=== PATIENT | female | born 1935 | race Caucasian/White ===

== ENCOUNTER → 2016-04-28 | Outpatient (CLI) | payer MEDICARE ==
[2016-04-28 11:31] LABS: ALBUMIN/GLOBULIN RATIO 0.94 (1.00-1.93); ALKALINE PHOSPHATASE 86 U/L (45-117); ALT/SGPT 15 U/L (12-78); ANION GAP 11 MEQ/L (8-16); AST/SGOT 13 U/L (15-37); BILIRUBIN,TOTAL 0.6 MG/DL (0.2-1.0); BLOOD UREA NITROGEN 15 MG/DL (7-18); CARBON DIOXIDE LEVEL 27 MEQ/L (21-32); CHLORIDE LEVEL 104 MEQ/L (98-107); CHOLESTEROL LEVEL 181 MG/DL (<200); CREATININE FOR GFR 0.91 MG/DL (0.55-1.02); GLOMERULAR FILTRATION RATE > 60.0 (>32); GLUCOSE, FASTING 117 MG/DL (83-110); POTASSIUM SERUM 3.9 MEQ/L (3.5-5.1); SODIUM LEVEL 142 MEQ/L (136-145); TOTAL PROTEIN 6.2 GM/DL (6.4-8.2); TRIGLYCERIDES LEVEL 200 MG/DL (<150)
== END ==
LOC: M LAB 09:41
PROVIDERS: ATTEND Family Medicine
DX: E11.9 Type 2 diabetes mellitus without complications (principal); E78.00 Pure hypercholesterolemia, unspecified; E03.9 Hypothyroidism, unspecified

== ENCOUNTER → 2016-09-07 | Outpatient (CLI) | payer MEDICARE | LOC: M LAB 09:33 | PROVIDERS: ATTEND Family Medicine | DX: N18.3 Chronic kidney disease, stage 3 (moderate) (principal); Z79.899 Other long term (current) drug therapy ==

== ENCOUNTER → 2016-09-15 | Outpatient (REF) | payer MEDICARE ==
[2016-09-15 11:10] LABS: ALBUMIN 2.9 GM/DL (3.2-5.2); ALBUMIN/GLOBULIN RATIO 0.88 (1.00-1.93); BILIRUBIN,TOTAL 0.4 MG/DL (0.2-1.0); CALCIUM LEVEL 9.1 MG/DL (8.8-10.2); CREATININE FOR GFR 0.99 MG/DL (0.55-1.02); FREE T4 1.48 NG/DL (0.76-1.46); GLOMERULAR FILTRATION RATE 57.3 (>32); POTASSIUM SERUM 4.3 MEQ/L (3.5-5.1); TOTAL PROTEIN 6.2 GM/DL (6.4-8.2)
== END ==
LOC: M LAB REF 10:13
PROVIDERS: ATTEND Family Medicine
DX: N18.3 Chronic kidney disease, stage 3 (moderate) (principal); E03.9 Hypothyroidism, unspecified; E11.9 Type 2 diabetes mellitus without complications

== ENCOUNTER → 2017-03-26 | Outpatient (CLI) | payer MEDICARE ==
[2017-03-26 13:56] LABS: ESTIMATED AVERAGE GLUCOSE 140 MG/DL (60-110); HEMOGLOBIN A1c 6.5 %
[2017-03-26 14:04] LABS: ALBUMIN 3.3 GM/DL (3.2-5.2); ALKALINE PHOSPHATASE 95 U/L (45-117); ALT/SGPT 14 U/L (12-78); ANION GAP 8 MEQ/L (8-16); AST/SGOT 14 U/L (7-37); BILIRUBIN,TOTAL 0.5 MG/DL (0.2-1.0); BLOOD UREA NITROGEN 24 MG/DL (7-18); CALCIUM LEVEL 8.7 MG/DL (8.8-10.2); CARBON DIOXIDE LEVEL 28 MEQ/L (21-32); CHLORIDE LEVEL 103 MEQ/L (98-107); CHOLESTEROL LEVEL 245 MG/DL (<200); CHOLESTEROL RISK RATIO 5.697 (<5); CREATININE FOR GFR 1.04 MG/DL (0.55-1.30); GLUCOSE, FASTING 125 MG/DL (70-100); HDL CHOLESTEROL 43 MG/DL (>40); LDL CHOLESTEROL 162.8 MG/DL (<100); NON-HDL-C 202 MG/DL; POTASSIUM SERUM 4.1 MEQ/L (3.5-5.1); SODIUM LEVEL 139 MEQ/L (136-145); TOTAL PROTEIN 6.6 GM/DL (6.4-8.2); TRIGLYCERIDES LEVEL 196 MG/DL (<150)
== END ==
LOC: M LAB 12:07
DX: I12.9 Hypertensive chronic kidney disease with stage 1 through stage 4 chronic kidney disease, or unspecified chronic kidney disease (principal); E78.00 Pure hypercholesterolemia, unspecified; E11.9 Type 2 diabetes mellitus without complications
CPT/HCPCS: 80053

== ENCOUNTER 2017-04-25 09:08 | Emergency (ER) | payer MEDICARE ==
[2017-04-25 10:09] LABS: BASO # 0.1 10^3/uL (0.0-0.2); EOS % 0.5 % (0.0-3.0); HEMATOCRIT 41.8 % (36.0-47.0); HEMOGLOBIN 13.8 g/dl (12.0-16.0); IMMATURE GRANULOCYTE % 0.5 % (0-3.0); LYMPH % 15.6 % (24.0-44.0); MEAN CORPUSCULAR HEMOGLOBIN 29.2 pg (27.0-33.0); MEAN CORPUSCULAR VOLUME 88.6 fl (80.0-96.0); MONO # 0.9 10^3/uL (0.0-0.8); MONO % 13.9 % (0.0-5.0); NEUTROPHILS # 4.2 10^3/uL (1.8-7.7); NEUTROPHILS % 68.5 % (36.0-66.0); PLATELET COUNT, AUTOMATED 255 10^3/uL (150-450); RED BLOOD COUNT 4.72 10^6/uL (4.00-5.40); RED CELL DISTRIBUTION WIDTH 14.7 % (11.5-14.5); WHITE BLOOD COUNT 6.1 10^3/uL (4.0-10.0)
[2017-04-25 10:22] LABS: INR 0.99; PROTHROMBIN TIME 13.2 SECONDS (12.4-14.5)
[2017-04-25] MEDS: NS 500 ML IV ×2 (10:22→11:32)
[2017-04-25 10:23] LABS: ANION GAP 10 MEQ/L (8-16); BLOOD UREA NITROGEN 18 MG/DL (7-18); CALCIUM LEVEL 8.4 MG/DL (8.8-10.2); CARBON DIOXIDE LEVEL 26 MEQ/L (21-32); CHLORIDE LEVEL 102 MEQ/L (98-107); CREATININE FOR GFR 1.19 MG/DL (0.55-1.30); GLOMERULAR FILTRATION RATE 46.2 (>32); GLUCOSE, FASTING 160 MG/DL (70-100); POTASSIUM SERUM 3.7 MEQ/L (3.5-5.1); SODIUM LEVEL 138 MEQ/L (136-145)
[2017-04-25 10:29] LABS: THYROID STIMULATING HORMONE 0.676 uIU/ML (0.358-3.740)
[2017-04-25] MEDS: BENZONATATE 100 MG CAP PO (11:40)
== END 2017-04-25 12:48 | disposition home or self-care (01) ==
LOC: M ED 09:08
DX: E86.0 Dehydration (principal); R42 Dizziness and giddiness; R05 Cough; R09.81 Nasal congestion; E11.9 Type 2 diabetes mellitus without complications; E78.5 Hyperlipidemia, unspecified; E07.9 Disorder of thyroid, unspecified; Z88.0 Allergy status to penicillin; Z79.899 Other long term (current) drug therapy; Z79.4 Long term (current) use of insulin; Z79.82 Long term (current) use of aspirin
CPT/HCPCS: 71046

== ENCOUNTER → 2017-08-24 | Outpatient (CLI) | payer MEDICARE ==
[2017-08-24 11:41] LABS: ALBUMIN/GLOBULIN RATIO 0.88 (1.00-1.93); ALKALINE PHOSPHATASE 81 U/L (45-117); ALT/SGPT 15 U/L (12-78); ANION GAP 9 MEQ/L (8-16); AST/SGOT 15 U/L (7-37); BILIRUBIN,TOTAL 0.5 MG/DL (0.2-1.0); BLOOD UREA NITROGEN 18 MG/DL (7-18); CALCIUM LEVEL 8.5 MG/DL (8.8-10.2); CARBON DIOXIDE LEVEL 27 MEQ/L (21-32); CHLORIDE LEVEL 105 MEQ/L (98-107); CHOLESTEROL LEVEL 275 MG/DL (<200); CREATININE FOR GFR 0.99 MG/DL (0.55-1.30); GLOMERULAR FILTRATION RATE 57.2 (>32); GLUCOSE, FASTING 80 MG/DL (70-100); HDL CHOLESTEROL 44 MG/DL (>40); LDL CHOLESTEROL 196.8 MG/DL (<100); NON-HDL-C 231 MG/DL; POTASSIUM SERUM 4.4 MEQ/L (3.5-5.1); SODIUM LEVEL 141 MEQ/L (136-145); TOTAL PROTEIN 6.4 GM/DL (6.4-8.2); TRIGLYCERIDES LEVEL 171 MG/DL (<150)
[2017-08-24 12:16] LABS: ESTIMATED AVERAGE GLUCOSE 151 MG/DL (60-110); HEMOGLOBIN A1c 6.9 %
== END ==
LOC: M LAB 10:06
DX: N18.3 Chronic kidney disease, stage 3 (moderate) (principal); Z79.899 Other long term (current) drug therapy
CPT/HCPCS: 84443

== ENCOUNTER → 2017-10-08 | Outpatient (CLI) | payer MEDICARE | LOC: M ADAMS 11:11 | DX: M25.532 Pain in left wrist (principal) | CPT/HCPCS: 73110 ==

== ENCOUNTER → 2018-03-29 | Outpatient (CLI) | payer MEDICARE ==
[~2018-03-29] MED LIST: ASPI81TA85 PO; ATOR40TA75 PO; ENAL2.5T PO; GLUC15009 PO; GLYB1TAB67; HUMA75IN2; HYDR25TAB PO; KLOR1CAP2 PO; LEVO112T2 PO; PIOG1TAB55 PO
[2018-03-29 13:59] LABS: BILIRUBIN,TOTAL 0.5 MG/DL (0.2-1.0); CALCIUM LEVEL 8.7 MG/DL (8.8-10.2); CREATININE FOR GFR 1.11 MG/DL (0.55-1.30); POTASSIUM SERUM 3.9 MEQ/L (3.5-5.1); THYROID STIMULATING HORMONE 0.525 uIU/ML (0.358-3.740); TOTAL PROTEIN 6.2 GM/DL (6.4-8.2)
[2018-03-29 14:25] LABS: HEMOGLOBIN A1c 6.7 %
[2018-03-29 17:13] LABS: MALB URINE SIEMENS 51.3 MG/L; MAU/CREAT RATIO 23.7 MCG/MG (0.0-30.0)
== END ==
LOC: M LAB 12:09
PROVIDERS: ATTEND Family Medicine
DX: N18.3 Chronic kidney disease, stage 3 (moderate) (principal); E78.00 Pure hypercholesterolemia, unspecified; E03.9 Hypothyroidism, unspecified; E11.65 Type 2 diabetes mellitus with hyperglycemia

== ENCOUNTER 2018-08-19 08:32 | Inpatient (IN) | payer MEDICARE ==
[~2018-08-19] VITALS: Ht 157.5 cm; Wt 120.5 kg
[~2018-08-19 08:32] MED LIST changes: -GLYB1TAB67; +GLYB5TAB12 PO; -HUMA75IN2; +HUMA75IN2 PO
[2018-08-19] MEDS ORDERED: ACETAMINOPHEN 325 MG TAB PO ONE (09:15)
[2018-08-19] MEDS ORDERED: TYLENOL PM PO (09:19)
[2018-08-19] MEDS ORDERED: APAP325T4 PO (09:19)
--- NOTE | 2018-08-19 10:08 | REP ---
Duplex extremity venous ultrasound: Right lower extremity. History: Right lower leg pain. Rule out DVT. Findings: The deep veins are anechoic and fully compressible from the groin to the popliteal fossa in the right lower extremity. Color flow imaging is homogeneous. Spectral Doppler interrogation demonstrates intact respiratory variation in flow and normal manual augmentation of flow. There is no evidence of deep vein thrombosis. Impression: Negative right lower extremity duplex venous ultrasound. No evidence of deep vein thrombosis. Electronically Signed by Luan Earl MD 08/19/2018 10:00 A
[2018-08-19 10:48] LABS: HEMATOCRIT 38.8 % (36.0-47.0); HEMOGLOBIN 12.8 g/dl (12.0-15.5); MEAN CORPUSCULAR HEMOGLOBIN 30.1 pg (27.0-33.0); MEAN CORPUSCULAR VOLUME 91.3 fl (80.0-96.0); PLATELET COUNT, AUTOMATED 304 10^3/uL (150-450); RED BLOOD COUNT 4.25 10^6/uL (4.00-5.40); WHITE BLOOD COUNT 9.6 10^3/uL (4.0-10.0)
[2018-08-19 10:58] LABS: C REACTIVE PROTEIN QUANTITATIV 0.4 MG/DL (0.00-0.30); CALCIUM LEVEL 8.7 MG/DL (8.8-10.2); CREATININE FOR GFR 1.06 MG/DL (0.55-1.30); GLOMERULAR FILTRATION RATE 52.7 (>32); POTASSIUM SERUM 3.9 MEQ/L (3.5-5.1)
[2018-08-19 11:12] LABS: ERYTHROCYTE SEDIMENTATION RATE 46 mm/hr (0-30)
[2018-08-19 11:13] VITALS: BP 146/77
[2018-08-19] MEDS ORDERED: IBUP-1022 PO ×2 (11:22→12:51)
[2018-08-19] MEDS ORDERED: IBUPROFEN 800 MG TAB PO ONE (11:30)
[2018-08-19] MEDS ORDERED: HUMA75IN2 SC (12:51)
[2018-08-19] MEDS ORDERED: GNP650TA8 PO (12:51)
[2018-08-19] MEDS ORDERED: ATOR1TAB21 PO (12:51)
[2018-08-19] MEDS ORDERED: ACET25TA12 PO (12:53)
[2018-08-19] MEDS ORDERED: POTA10CA32 PO (12:53)
--- NOTE | 2018-08-19 13:04 | REP ---
Right knee series: Five views. History: Right posterior knee pain. Findings: There is vascular calcification. There is mild patellofemoral spurring. Nonarticular spurring is seen on the superior pole the patella as well. No fracture or subluxation is seen. Impression: No acute bony abnormality. Mild patellofemoral osteoarthritic and nonarticular spurring. Electronically Signed by Luan Earl MD 08/19/2018 10:01 A
--- NOTE | 2018-08-19 13:25 | REP ---
CT of the right knee without IV contrast: Comparison is the plain film study performed earlier today. There is no fracture or dislocation. There is a small joint effusion. There is patellofemoral osteoarthritis, particularly in the lateral facet. 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 There is a small subcortical bone island posteriorly in the medial femoral condyle. There are no calcifications. There is a large volume subcutaneous adipose tissue. Impression: There is no fracture or dislocation. Osteoarthritis. Small joint effusion. Electronically Signed by Maco Santiago MD 08/19/2018 01:16 P
[2018-08-19] MEDS: ASPIRIN 81 MG ENTERIC TAB PO SCH (13:40)
[2018-08-19] MEDS: hydroCHLOROthiazide 25 MG TAB PO SCH (13:41)
[2018-08-19] MEDS: POTASSIUM CHLORIDE 10 MEQ SR TABLET PO SCH (13:41)
[2018-08-19] MEDS ORDERED: GLUCAGON FOR INJ 1 MG VIAL (J1610) SC PRN (15:30)
[2018-08-19] MEDS ORDERED: DEXTROSE 50% 50 ML SYRINGE IV PRN (15:30)
[2018-08-19] MEDS ORDERED: GLUCOSE 4 GM CHEW TABLET PO PRN (15:30)
--- NOTE | 2018-08-19 16:12 | HPE ---
DATE OF ADMISSION: 08/19/2018 PRIMARY CARE PROVIDER: Dr. Aly York PRINCIPAL DIAGNOSIS: Right knee pain and inability to ambulate. HISTORY: Radha Vinson, 82-year-old, patient of Dr. York'christie who came to the emergency room because she could not bear weight on her right leg. She says her right knee hurts behind the knee and she is unable to walk on it. Physical therapy saw her in the emergency room and they did not feel she was stable for discharge. Radiographs include plain films, and then following this a CT of the right knee showed no fracture. She has arthritis and small joint effusion. PAST MEDICAL HISTORY: Shows hyperlipidemia, hypertensive heart disease, type 2 diabetes, hypothyroidism, history of arthritis. SURGICAL HISTORY: Cataract extractions, hysterectomy, (C) sections. MEDICATIONS: - aspirin 81 mg daily - Tylenol - atorvastatin 20 mg twice weekly - Vasotec 2.5 mg daily - glucosamine 1500 mg daily - glyburide/metformin 5/500 2 tablets daily - hydrochlorothiazide 25 mg daily - ibuprofen 600 mg every 6 hours as needed - 75/25 insulin, 32 units in the morning, 30 units in the evening - levothyroxine 112 mcg daily - pioglitazone 45 mg daily - potassium chloride 20 mEq daily ALLERGIES: Are to PENICILLINS. REVIEW OF SYSTEMS: No fall or injury. No warmth, redness, or swelling in the knee. No chest pain, shortness of breath, fever, or chills. No past history of deep venous thrombosis (DVT) or venous thromboembolism (VTE). FAMILY HISTORY: Noncontributory. PHYSICAL EXAM: Vital signs: 146/60. Vital signs per flow sheet. General appearance: She is lying in bed, unable to stand. Pupils are equal round, reactive to light. Tympanic membranes (TMs) and oropharynx benign. Neck: No masses. Lungs: Clear. Heart: Regular without murmur. Abdomen: Soft, nontender. No masses. Trace peripheral edema. Good distal pulses. There is no warmth, redness, or swelling of her calf. Tender to palpate. No popliteal fossa of the right knee. There is a small joint effusion. She can flex and extend the knee a small amount but resists with flexing extending more than 30 degrees. LABS: Electrolytes unremarkable. C-reactive protein 0.4. Sedimentation rate is only 46. CBC unremarkable. IMPRESSION: 1. Right knee pain, inability to ambulate. Etiology is unknown. I would like to get to the back of her leg on exam as most of her tenderness is back there and I cannot tell if there might be a superficial phlebitis (she has some tight pants on that have not been removed yet - I will examine this tomorrow). 2. Type 2 diabetes. We will hold her 75/25 insulin in the hospital while on enforced diabetic diet. We will do fingerstick blood sugar with coverage and give a low dose of basal insulin. I do not want her to become hypoglycemic on an enforced diabetic diet. We will also hold her pioglitazone and glyburide/metformin for now. 3. Hypertension. Continue her hydrochlorothiazide and supplemental potassium. 4. Hypothyroidism. Continue on levothyroxine 112 mcg daily. 5. Order physical therapy for her knee. We will ask orthopedics to see her tomorrow. I do not think anybody needs to see her today for this. I have not put the ortho consult in yet. This can be ordered in the morning.
[2018-08-19] MEDS: IBUPROFEN 600 MG TAB PO PRN (17:42)
[2018-08-19] MEDS: HumaLOG INSULIN (NovoLOG) PER UNIT SC SCH ×2 (17:47→22:00)
[2018-08-19] MEDS ORDERED: NYSTATIN 100,000 UNITS/GM TOPICAL PWD 15 GM TOP SCH (21:00)
[2018-08-19] MEDS: LEVEMIR (INSULIN DETEMIR) 1 UNITS/0.01ML SC SCH (21:56)
[2018-08-19 23:13] VITALS: BP 146/77
[2018-08-20] MEDS: IBUPROFEN 600 MG TAB PO PRN ×3 (00:15→18:08)
[2018-08-20] MEDS: LEVOTHYROXINE 112MCG TABLET (0.112MG) PO SCH (05:52)
[2018-08-20 06:00] VITALS: BP 127/88
[2018-08-20] MEDS: HumaLOG INSULIN (NovoLOG) PER UNIT SC SCH ×4 (07:30→21:00)
[2018-08-20] MEDS: ASPIRIN 81 MG ENTERIC TAB PO SCH (09:22)
[2018-08-20] MEDS: hydroCHLOROthiazide 25 MG TAB PO SCH (09:22)
[2018-08-20] MEDS: POTASSIUM CHLORIDE 10 MEQ SR TABLET PO SCH (09:22)
[2018-08-20] MEDS: ENOXAPARIN 40 MG/0.4 ML SYRINGE (J1650) SC SCH (09:23)
[2018-08-20 10:00] VITALS: BP 168/72
--- NOTE | 2018-08-20 10:58 | IPN ---
DATE: 08/20/2018 Radha was admitted with intractable pain in the back of her right knee. No falls or injuries. No fever or chills. Imaging studies have shown no deep venous thrombosis (DVT), fracture or anything besides some arthritis and some small joint effusion. PHYSICAL EXAMINATION: Afebrile. Vital signs stable. Lungs clear. Heart regular rhythm Abdomen soft, nontender. With assistance of several members of the nursing staff, we were able to get Radha turned so I could closely examine the popliteal space of her right knee. It is unremarkable to visualized. There is no rash, redness, swelling. On palpation, she is very tender to palpate over the gastrocnemius muscle going down into the Achilles tendon. There is no edema. There is no palpable venous cord present, (I was suspecting superficial phlebitis but that does not seem to be the case). There is minimal tenderness proximal to the knee. It is all distal and posterior with no palpable mass or other localizing finding. IMPRESSION: 1. Intractable right knee pain. Etiology of this is unknown. She could have a gastrocnemius strain. It does seem to involve the Achilles tendon. I will ask orthopaedics to see her. Physical therapy has been ordered. 2. Hypertension: Her blood pressure is in good control. We are restarting her Vasotec 2.5 mg daily. 3. Diabetes: Blood sugar is under adequate control. She is currently on sliding scale insulin as they did not want to risk hypoglycemia on an enforced diabetic diet. At home, she is glyburide, metformin and pioglitazone as well as 75/25 insulin 32 units in the morning and 30 units in the evening. 4. Hyperlipidemia: She is on atorvastatin 20 mg twice weekly, which she can restart upon discharge.
[2018-08-20] MEDS ORDERED: PILL CUTTER 1 EACH XX PRN (11:00)
[2018-08-20 14:00] VITALS: BP 135/70
[2018-08-20] MEDS: ACETAMINOPHEN 650MG ER TAB (TYLENOL ARTHRITIS) PO PRN ×2 (15:57→21:56)
[2018-08-20] MEDS: ENALAPRIL MALEATE 5 MG TAB PO SCH (15:58)
--- NOTE | 2018-08-20 17:48 | CR ---
DATE OF ADMISSION: 08/20/2018 CHIEF COMPLAINT: Right knee pain. HISTORY OF PRESENT ILLNESS: This 82-year-old female is seen today for a week history of right knee pain, located primarily in the posterior and posteromedial aspect of her right knee. This started insidiously. She has had knee pain definitely in the past; she saw Dr. Cook at the [facility] ([facility] [place] in the past and was diagnosed with arthritis in both her knees and her ankles. This is not atypical for her, but she feels like the pain got a little bit worse, so she presented to the hospital now one day ago as she feels like she is having some difficulty ambulating due to restrictions from pain. She has no numbness or tingling in the legs. She feels like there is no obvious weakness. It is primarily the pain that is stopping her from ambulating. There are no problems of bowel or bladder. No constitutional symptoms, such as fever, chills, night sweats, problems with appetite, nausea, vomiting or any other problems with any other joints. PAST MEDICAL HISTORY: Includes hyperlipidemia, hypertensive heart disease, type 2 diabetes, hypothyroidism, and a history of arthritis. MEDICATIONS: Include aspirin, Tylenol, atorvastatin, Vasotec, glucosamine, glyburide, metformin, hydrochlorothiazide, ibuprofen, insulin, levothyroxine, pioglitazone, potassium chloride. ALLERGIES: To PENICILLINS. SURGICAL HISTORY: Cataracts, hysterectomy, (C) sections. PHYSICAL EXAM: Vital signs: Temperature 97.8. No fevers throughout her visit. Blood pressure 135/70. Pulse rate 95. Respiratory rate 18. 95% on room air. She is lying supine. She appears comfortable. She is here with her relatives. Her overall disposition is pleasant. Examination of her lower extremities reveal increased adiposity. There is quite a bit of lower extremity edema on both sides. She has normal sensation in her lower extremities in the feet and the superficial and deep peroneal nerves as well as saphenous, sural and tibial. Pedal pulses are difficult to palpate, but the feet are warm and well perfused. She is able to wiggle her toes, dorsiflex and plantar flex the foot. Range of motion on both sides is symmetric and restricted, 0 to about 90 degrees. More painful with deep flexion. No obvious swelling or fullness of the posterior aspect of the knee, but there is a sequelae of increased tissue in the back of the knee, namely a little bit of redness. No obvious skin breakdown. The skin is a little bit red in the posterior aspect of the knee consistent with skin fold type changes. There is no obvious redness or warmth of the knee. No obvious effusion but again, difficult to tell due to her adiposity. Anterior cruciate ligament (ACL), posterior cruciate ligament (PCL), medial collateral ligament (MCL) and lateral collateral ligament (LCL) all felt stable and solid 0 and 30 degrees. She was diffusely tender throughout the lower extremities on both sides, which she states is a chronic problem going back years. Laboratory examination revealed white blood cell count 9.6. ESR 46. CRP of 0.4. Radiographs were obtained of the right knee. Five views were obtained, AP, two obliques, lateral and sunrise view. This shows no obvious fracture. Increased soft tissue envelope. Bones were well mineralized. No patella abraham or baja. No obvious effusion. There is mild to moderate tricompartmental osteoarthritis. No malalignment. No subluxation of the knee to indicate ligamentous injury. Vascular ultrasound was performed of the lower extremities; this is negative for deep vein thrombosis (DVT)/venous thromboembolism (VTE). Knee CT was also performed. There is no fracture. There is patellofemoral arthritis. There is small effusion. There is femoral tibial arthritis, particularly of the medial compartment. No obvious calcifications. Large volume subcutaneous adipose tissue. ASSESSMENT/PLAN: This is 82-year-old female does not appear to have either a septic knee, any infection or any signs of fracture or ligamentous injury. This seems to be exacerbation of her preexisting osteoarthritis or even perhaps a Munguia's cyst. I have suggested the possibility of an MRI to Radha, although she is quite claustrophobic and refused that. One could consider, I suppose, an ultrasound of the knee to check for Munguia's cyst to confirm the diagnosis. I do not see any urgent need to perform any interventions at this point. I recommend weightbearing as tolerated, mobilization as able with physical therapy and a walker as she is able to tolerate. I think that her soft tissue envelope would preclude use of a brace. We did talk about intra-articular steroid, intra-articular cortisone injection. I prefer to perform this on an outpatient basis. However, if she does not show any signs of improving or improvement in her mobilization or pain levels in the next 2 or 3 days, then I am open to the idea of cortisone injection. I will leave this in Dr. Rowley' s hands to inform me if she is not mobilizing appropriately or improving, and I would be happy to perform the intra-articular steroid injection if they wish. Sincerely,
[2018-08-20 18:00] VITALS: BP 166/68
[2018-08-20] MEDS: LEVEMIR (INSULIN DETEMIR) 1 UNITS/0.01ML SC SCH (21:55)
[2018-08-20 22:00] VITALS: BP 135/61
[2018-08-21 02:00] VITALS: BP 130/60
[2018-08-21] MEDS: LEVOTHYROXINE 112MCG TABLET (0.112MG) PO SCH (05:45)
[2018-08-21 06:29] LABS: HEMATOCRIT 37.2 % (36.0-47.0); HEMOGLOBIN 12.1 g/dl (12.0-15.5); MEAN CORPUSCULAR HEMOGLOBIN 30.5 pg (27.0-33.0); MEAN CORPUSCULAR HGB CONC 32.5 g/dl (32.0-36.5); MEAN CORPUSCULAR VOLUME 93.7 fl (80.0-96.0); PLATELET COUNT, AUTOMATED 283 10^3/uL (150-450); RED BLOOD COUNT 3.97 10^6/uL (4.00-5.40); WHITE BLOOD COUNT 6.6 10^3/uL (4.0-10.0)
[2018-08-21 06:55] LABS: CALCIUM LEVEL 8.4 MG/DL (8.8-10.2); CREATININE FOR GFR 0.96 MG/DL (0.55-1.30); GLOMERULAR FILTRATION RATE 59.1 (>32); POTASSIUM SERUM 3.6 MEQ/L (3.5-5.1)
[2018-08-21] MEDS: HumaLOG INSULIN (NovoLOG) PER UNIT SC SCH ×4 (07:30→21:00)
[2018-08-21] MEDS: ENOXAPARIN 40 MG/0.4 ML SYRINGE (J1650) SC SCH (09:20)
[2018-08-21] MEDS: IBUPROFEN 600 MG TAB PO PRN ×2 (09:21→16:18)
[2018-08-21] MEDS: ENALAPRIL MALEATE 5 MG TAB PO SCH (09:21)
[2018-08-21] MEDS: ASPIRIN 81 MG ENTERIC TAB PO SCH (09:21)
[2018-08-21] MEDS: hydroCHLOROthiazide 25 MG TAB PO SCH (09:21)
[2018-08-21] MEDS: POTASSIUM CHLORIDE 10 MEQ SR TABLET PO SCH (09:21)
--- NOTE | 2018-08-21 10:25 | IPN ---
DATE OF SERVICE: 08/21/2018 Radha is able to move her right knee a little more. She says it is a little less tender. She stood at the bedside yesterday. Seen by orthopedics. Dr. Cornelius's note has been reviewed. I appreciate his input. PHYSICAL EXAMINATION: Vital signs stable. Afebrile. Lungs clear. Heart: Regular rate and rhythm. Abdomen soft, nontender. Right knee has better flexion and extension. tipple tender to palpate posteriorly. She does have decreased sensation to light touch in both feet suggesting some diabetic neuropathy. LABORATORIES: Complete blood count (CBC) and basic metabolic profile (BMP) unremarkable. IMPRESSION: 1. Intractable right posterior knee pain. Etiology is unknown. Orthopedic input is appreciated. MRI scan suggested, which she declined due to claustrophobia. I am hoping she will be able to get out of bed today and start walking. I think she has a gastrocnemius strain that is also involving the Achilles tendon. Physical therapy has been ordered. Consideration for ARU discussed at care rounds. 2. Hypertension. Pressure is under good control. 3. Diabetes with diabetic neuropathy. Blood sugar is currently well controlled with significantly reduced insulin requirements on an enforced diabetic diet. 4. Hypertension, well controlled on current regimen. 5. Hypokalemia. I will increase her daily potassium supplement.
[2018-08-21] MEDS: ACETAMINOPHEN 650MG ER TAB (TYLENOL ARTHRITIS) PO PRN (11:45)
[2018-08-21 14:00] VITALS: BP 138/64
[2018-08-21 18:00] VITALS: BP 142/65
[2018-08-21] MEDS: LEVEMIR (INSULIN DETEMIR) 1 UNITS/0.01ML SC SCH (21:03)
[2018-08-21 22:00] VITALS: BP 132/72
[2018-08-22 02:00] VITALS: BP 128/68
[2018-08-22] MEDS: LEVOTHYROXINE 112MCG TABLET (0.112MG) PO SCH (05:55)
[2018-08-22 06:00] VITALS: BP 130/72
[2018-08-22] MEDS: IBUPROFEN 600 MG TAB PO PRN ×3 (06:00→18:58)
[2018-08-22 06:26] LABS: HEMATOCRIT 37.3 % (36.0-47.0); HEMOGLOBIN 12.2 g/dl (12.0-15.5); MEAN CORPUSCULAR HGB CONC 32.7 g/dl (32.0-36.5); MEAN CORPUSCULAR VOLUME 94.7 fl (80.0-96.0); PLATELET COUNT, AUTOMATED 284 10^3/uL (150-450); RED BLOOD COUNT 3.94 10^6/uL (4.00-5.40); WHITE BLOOD COUNT 7.1 10^3/uL (4.0-10.0)
[2018-08-22 06:52] LABS: BLOOD UREA NITROGEN 20 MG/DL (7-18); C REACTIVE PROTEIN QUANTITATIV 0.51 MG/DL (0.00-0.30); CALCIUM LEVEL 8.8 MG/DL (8.8-10.2); CARBON DIOXIDE LEVEL 29 MEQ/L (21-32); CHLORIDE LEVEL 107 MEQ/L (98-107); CREATININE FOR GFR 0.88 MG/DL (0.55-1.30); GLOMERULAR FILTRATION RATE > 60.0 (>32); GLUCOSE, FASTING 102 MG/DL (70-100); POTASSIUM SERUM 3.7 MEQ/L (3.5-5.1); SODIUM LEVEL 141 MEQ/L (136-145)
[2018-08-22] MEDS: ENOXAPARIN 40 MG/0.4 ML SYRINGE (J1650) SC SCH (08:51)
[2018-08-22] MEDS: HumaLOG INSULIN (NovoLOG) PER UNIT SC SCH ×4 (08:51→20:56)
[2018-08-22] MEDS: ENALAPRIL MALEATE 5 MG TAB PO SCH (08:52)
[2018-08-22] MEDS: POTASSIUM CHLORIDE 10 MEQ SR TABLET PO SCH (08:52)
[2018-08-22] MEDS: hydroCHLOROthiazide 25 MG TAB PO SCH (08:52)
[2018-08-22] MEDS: ASPIRIN 81 MG ENTERIC TAB PO SCH (08:52)
[2018-08-22 10:00] VITALS: BP 163/69
[2018-08-22 14:00] VITALS: BP 120/58
[2018-08-22] MEDS: LEVEMIR (INSULIN DETEMIR) 1 UNITS/0.01ML SC SCH (20:56)
[2018-08-22 22:00] VITALS: BP 147/71
[2018-08-23 06:00] VITALS: BP 156/70
[2018-08-23] MEDS: LEVOTHYROXINE 112MCG TABLET (0.112MG) PO SCH (06:16)
[2018-08-23] MEDS: HumaLOG INSULIN (NovoLOG) PER UNIT SC SCH ×2 (07:30→12:34)
[2018-08-23] MEDS: hydroCHLOROthiazide 25 MG TAB PO SCH (08:10)
[2018-08-23] MEDS: POTASSIUM CHLORIDE 10 MEQ SR TABLET PO SCH (08:10)
[2018-08-23] MEDS: ASPIRIN 81 MG ENTERIC TAB PO SCH (08:10)
[2018-08-23 08:11] VITALS: BP 156/70
[2018-08-23] MEDS: ENALAPRIL MALEATE 5 MG TAB PO SCH (08:11)
[2018-08-23] MEDS: IBUPROFEN 600 MG TAB PO PRN (08:11)
[2018-08-23] MEDS: ENOXAPARIN 40 MG/0.4 ML SYRINGE (J1650) SC SCH (08:11)
[2018-08-23 14:00] VITALS: BP 155/67
--- NOTE | 2018-08-23 15:12 | IPN ---
DATE: 08/22/2018 Date of dictation: 08/23/2018 Radha Vinson was seen while she was doing physical therapy on the stairs yesterday. She is able to go up and down a few stairs. Knee exam was unchanged. IMPRESSION: Intractable right knee pain. She seems to be progressing with physical therapy.
--- NOTE | 2018-08-25 21:43 | DSES ---
DATE OF ADMISSION: 08/21/2018 DATE OF DISCHARGE: PRIMARY CARE PROVIDER: Dr. Aly York PRINCIPAL DIAGNOSIS: Intractable right knee pain. HISTORY: Radha Vinson has intractable right knee pain that prohibits her walking, so she was admitted. HOSPITAL COURSE: Diagnostic studies really did not point to why her knee hurt so much. On exam was mostly in the popliteal fossa at its insertion in the gastrocnemius muscle. Some tenderness down to the Achilles and may suggest this is probably a calf strain. She did not give any history of any injury that might cause this. Her plain films and CT of the knee showed arthritis but no fracture or findings to account for the posterior pain. She was seen by orthopedics who came to the same conclusion. Yesterday she was getting out of bed. Today she is walking. Physical therapy thinks she will clear for home today. LABORATORY DATA: CBC today is unremarkable. White count 7.1, hemoglobin 12.2, platelets 284. Electrolytes are unremarkable. Sodium 141, potassium 3.7, BUN 20, creatinine 0.8, glucose 102. DISPOSITION: I expect she will get discharged today if okay with physical therapy. Medications are unchanged from admission: - Tylenol PM at bedtime - Tylenol 650 mg every 4 hours otherwise - aspirin 81 mg daily - atorvastatin 20 mg on Mondays and - enalapril 2.5 mg daily - glucosamine as needed - glyburide/metformin two tablets daily - hydrochlorothiazide 25 mg daily - ibuprofen 600 mg every 6 hours as needed for pain - 75/25 insulin, 32 units in the morning, 30 units in the evening - levothyroxine 112 mcg daily - pioglitazone 45 mg daily - potassium chloride 10 mEq daily At the time of this dictation, there are no pending labs.
--- NOTE | 2018-08-26 07:51 | DSES ---
DATE OF ADMISSION: 08/21/2018 DATE OF DISCHARGE: 08/23/2018 PRINCIPAL DIAGNOSIS: Intractable right knee pain, probably from gastrocnemius muscle Achilles tendon strain. HISTORY: Radha Vinson was admitted with inability to walk because of pain in the back of her right knee. Details as per history and physical from admission. HOSPITAL COURSE: She was admitted to a medical bed. She was seen in consultation by orthopedics who did not feel she needed a steroid injection or other intervention during this hospitalization. Radiographic images both plain films and CT just showed arthritis, no fracture. On exam, most of the pain was at the insertion of the gastrocnemius popliteal area of the right knee as well as the right Achilles. There is no palpable Munguia's nor any seen on CT. Eventually she responded to physical therapy measures and passed a home safety evaluation going home on 08/23. DISCHARGE LABS: White count 7.1, hemoglobin 12.2, platelets 284, sodium 141, potassium 3.7, BUN 20, creatinine 0.8, glucose 102. Blood sugars are generally less than 200. DISPOSITION: Patient is discharged home. Follow-up with her primary care provider in a week. ACTIVITY: As tolerated. DIET: Consistent carbohydrate, no added salt diet. MEDICATIONS: Were unchanged from admission: - aspirin 81 mg daily - atorvastatin 20 mg daily - enalapril 2.5 mg daily - glucosamine as needed - glyburide/metformin 5/500 two tablets daily - hydrochlorothiazide 25 mg daily - ibuprofen 600 mg every 6 hours as needed - 75/25 insulin 32 units in the morning, 30 units in the evening - levothyroxine 112 mcg daily - pioglitazone 45 mg daily - potassium chloride 10 mEq daily At the time of this dictation there were no pending labs.
--- NOTE | 2018-08-26 08:30 | DSES ---
DATE OF ADMISSION: 08/21/2018 DATE OF DISCHARGE: 08/23/2018 PRINCIPAL DIAGNOSIS: Intractable right knee pain. PRIMARY CARE PROVIDER: Dr. Aly York SECONDARY DIAGNOSES: Hypertensive heart disease. Diabetes. Diabetic neuropathy. HISTORY: Radha Vinson was admitted with intractable right knee pain. Details in history and physical on admission. HOSPITAL COURSE: 1. Patient admitted to medical bed. Her knee pain seemed to be more muscular and on exam it was more like a gastrocnemius and Achilles tendon strain. She was seen by Dr. Cornelius from orthopedics. Noted arthritis on the x-ray and CT, but no findings in the area of her pain. Eventually she responded to physical therapy and was able to walk halls and feels able to go home today. 2. Hypertension. Blood pressure is well controlled on Vasotec 2.5 mg. 3. Diabetes. We made a significant reduction in her insulin doses in the hospital and on an enforced diabetic diet. Her blood sugars were in the 100-150 range. SIGNIFICANT LABS: Yesterday white count 7.1, hemoglobin 12.2, platelets 284. Sodium 141, potassium 3.7, BUN 20, creatinine 0.8. Glucose 102. DISPOSITION: She was discharged home in improved and stable condition. She will followup with Dr. York in a week. Activity as tolerated. No added salt diet. Medicines will be Tylenol as needed, aspirin 81 mg daily, atorvastatin 20 mg daily, Vasotec 2.5 mg daily, glucosamine, glyburide/metformin 5/500 two tablets daily, hydrochlorothiazide 25 mg daily, ibuprofen 600 mg every 6 hours as needed, 75/25 insulin 32 units in the morning and 30 units in the evening, levothyroxine 112 mcg daily, pioglitazone 45 mg daily, potassium chloride 20 mEq daily. She has passed her home safety evaluation. Home health nursing form was signed.
== END 2018-08-23 15:54 | disposition home health service (06) | DRG 563 ==
LOC: EDBD 08:32 → M ED 08:32 → M ED INP 13:02 → M MSPAV 23:12 → OBSVTOIN 08-21 09:43 → INTOOBSV 08-21 09:43
PROVIDERS: ADMIT Hospitalist; ATTEND Family Medicine
DX: S86.111A Strain of other muscle(s) and tendon(s) of posterior muscle group at lower leg level, right leg, initial encounter (principal); M25.461 Effusion, right knee; E78.5 Hyperlipidemia, unspecified; E11.40 Type 2 diabetes mellitus with diabetic neuropathy, unspecified; E87.6 Hypokalemia; M17.0 Bilateral primary osteoarthritis of knee; E03.9 Hypothyroidism, unspecified; M19.90 Unspecified osteoarthritis, unspecified site; Z66 Do not resuscitate; Z79.82 Long term (current) use of aspirin; Z79.4 Long term (current) use of insulin; Z79.899 Other long term (current) drug therapy; Z88.0 Allergy status to penicillin; Z98.49 Cataract extraction status, unspecified eye; Z90.710 Acquired absence of both cervix and uterus; X58.XXXA Exposure to other specified factors, initial encounter; Y92.9 Unspecified place or not applicable

== ENCOUNTER → 2019-02-24 | Outpatient (CLI) | payer MEDICARE ==
[~2019-02-24] MED LIST changes: +ACET25TA12 PO; +APAP325T4 PO; +ATOR1TAB21 PO; +GNP650TA8 PO; +HUMA75IN2 SC; +IBUP-1022 PO; +POTA10CA32 PO; +TYLENOL PM PO
[2019-02-24 11:25] LABS: BASO # 0.1 10^3/uL (0.0-0.2); BASO % 0.9 % (0.0-1.0); EOS # 0.4 10^3/uL (0.0-0.5); EOS % 4.8 % (0.0-3.0); HEMATOCRIT 41.9 % (36.0-47.0); HEMOGLOBIN 13.3 g/dl (12.0-15.5); LYMPH # 2.5 10^3/uL (1.5-5.0); LYMPH % 31.8 % (24.0-44.0); MEAN CORPUSCULAR HEMOGLOBIN 30.2 pg (27.0-33.0); MEAN CORPUSCULAR HGB CONC 31.7 g/dl (32.0-36.5); MONO # 0.8 10^3/uL (0.0-0.8); MONO % 10.2 % (0.0-5.0); NEUTROPHILS % 51.9 % (36.0-66.0); PLATELET COUNT, AUTOMATED 279 10^3/uL (150-450); RED BLOOD COUNT 4.41 10^6/uL (4.00-5.40); WHITE BLOOD COUNT 7.7 10^3/uL (4.0-10.0)
[2019-02-24 12:06] LABS: HEMOGLOBIN A1c 6.9 %
[2019-02-24 13:19] LABS: ALBUMIN 3.3 GM/DL (3.2-5.2); BILIRUBIN,TOTAL 0.6 MG/DL (0.2-1.0); CHOLESTEROL RISK RATIO 4.469 (<5); CREATININE FOR GFR 1.11 MG/DL (0.55-1.30); GLOMERULAR FILTRATION RATE 49.9 (>32); POTASSIUM SERUM 4.3 MEQ/L (3.5-5.1); THYROID STIMULATING HORMONE 0.23 uIU/ML (0.358-3.740); TOTAL PROTEIN 6.5 GM/DL (6.4-8.2)
== END ==
LOC: M LAB 10:42
PROVIDERS: ATTEND Family Medicine
DX: I12.9 Hypertensive chronic kidney disease with stage 1 through stage 4 chronic kidney disease, or unspecified chronic kidney disease (principal); E78.00 Pure hypercholesterolemia, unspecified; E03.9 Hypothyroidism, unspecified; E11.9 Type 2 diabetes mellitus without complications

== ENCOUNTER → 2019-03-24 | Outpatient (CLI) | payer MEDICARE ==
[2019-03-24 13:23] LABS: FREE T4 1.51 NG/DL (0.76-1.46); THYROID STIMULATING HORMONE 0.37 uIU/ML (0.358-3.740)
== END ==
LOC: M LAB 11:43
PROVIDERS: ATTEND Family Medicine
DX: E03.9 Hypothyroidism, unspecified (principal)

== ENCOUNTER → 2019-12-16 | Outpatient (CLI) | payer MEDICARE ==
[~2019-12-16] MED LIST changes: -ASPI81TA85 PO; +ASPI81TA86 PO; +ENAL1TAB46 PO; -ENAL2.5T PO
[2019-12-16 10:41] LABS: BASO # 0.1 10^3/uL (0.0-0.2); BASO % 1.3 % (0.0-1.0); EOS # 0.4 10^3/uL (0.0-0.5); EOS % 6.1 % (0.0-3.0); HEMATOCRIT 40.7 % (36.0-47.0); HEMOGLOBIN 12.8 g/dl (12.0-15.5); LYMPH # 1.6 10^3/uL (1.5-5.0); LYMPH % 23.2 % (24.0-44.0); MEAN CORPUSCULAR HGB CONC 31.4 g/dl (32.0-36.5); MEAN CORPUSCULAR VOLUME 92.1 fl (80.0-96.0); MONO # 0.7 10^3/uL (0.0-0.8); MONO % 10.7 % (0.0-5.0); NEUTROPHILS % 58.3 % (36.0-66.0); PLATELET COUNT, AUTOMATED 289 10^3/uL (150-450); RED BLOOD COUNT 4.42 10^6/uL (4.00-5.40); WHITE BLOOD COUNT 6.8 10^3/uL (4.0-10.0)
[2019-12-16 10:54] LABS: ALBUMIN 3.1 GM/DL (3.2-5.2); BILIRUBIN,TOTAL 0.5 MG/DL (0.2-1.0); CALCIUM LEVEL 9.2 MG/DL (8.8-10.2); CHOLESTEROL RISK RATIO 4.265 (<5); CREATININE FOR GFR 1.07 MG/DL (0.55-1.30); FREE T4 1.71 NG/DL (0.76-1.46); GLOMERULAR FILTRATION RATE 51.9 (>32); THYROID STIMULATING HORMONE 0.313 uIU/ML (0.358-3.740); TOTAL PROTEIN 6.3 GM/DL (6.4-8.2)
[2019-12-16 11:24] LABS: HEMOGLOBIN A1c 6.6 %
== END ==
LOC: M LAB 09:09
PROVIDERS: ATTEND Family Medicine
DX: E11.9 Type 2 diabetes mellitus without complications (principal); I12.9 Hypertensive chronic kidney disease with stage 1 through stage 4 chronic kidney disease, or unspecified chronic kidney disease; E78.00 Pure hypercholesterolemia, unspecified; E03.9 Hypothyroidism, unspecified

== ENCOUNTER → 2020-03-02 | Outpatient (CLI) | payer MEDICARE ==
[~2020-03-02] MED LIST changes: +HYDR-3490 PO; -HYDR25TAB PO
[2020-03-02 14:12] LABS: FREE T4 1.54 NG/DL (0.76-1.46); THYROID STIMULATING HORMONE 0.47 uIU/ML (0.358-3.740)
== END ==
LOC: M LAB 12:53
PROVIDERS: ATTEND Family Medicine
DX: E03.9 Hypothyroidism, unspecified (principal)

== ENCOUNTER → 2020-06-14 | Outpatient (CLI) | payer MEDICARE ==
[2020-06-14 12:02] LABS: ALBUMIN 3.3 GM/DL (3.2-5.2); BILIRUBIN,TOTAL 0.5 MG/DL (0.2-1.0); CALCIUM LEVEL 9.4 MG/DL (8.8-10.2); CHOLESTEROL RISK RATIO 4.127 (<5); CREATININE FOR GFR 1.12 MG/DL (0.55-1.30); FREE T4 1.46 NG/DL (0.76-1.46); GLOMERULAR FILTRATION RATE 49.2 (>32); POTASSIUM SERUM 4.2 MEQ/L (3.5-5.1); THYROID STIMULATING HORMONE 0.498 uIU/ML (0.358-3.740); TOTAL PROTEIN 6.8 GM/DL (6.4-8.2)
== END ==
LOC: M LAB 10:45
PROVIDERS: ATTEND Family Medicine
DX: N18.30 Chronic kidney disease, stage 3 unspecified (principal); E78.00 Pure hypercholesterolemia, unspecified; E03.9 Hypothyroidism, unspecified

== ENCOUNTER → 2020-10-13 | Outpatient (CLI) | payer MEDICARE ==
[2020-10-13 11:32] LABS: BILIRUBIN,TOTAL 0.6 MG/DL (0.2-1.0); CALCIUM LEVEL 8.9 MG/DL (8.8-10.2); CHOLESTEROL RISK RATIO 4.583 (<5); CREATININE FOR GFR 1.07 MG/DL (0.55-1.30); FREE T4 1.56 NG/DL (0.76-1.46); GLOMERULAR FILTRATION RATE 51.9 (>32); POTASSIUM SERUM 3.8 MEQ/L (3.5-5.1); THYROID STIMULATING HORMONE 0.416 uIU/ML (0.358-3.740); TOTAL PROTEIN 6.3 GM/DL (6.4-8.2)
[2020-10-13 11:34] LABS: MAU/CREAT RATIO 125.2 MCG/MG (0.0-30.0)
== END ==
LOC: M LAB 09:31
PROVIDERS: ATTEND Family Medicine
DX: E78.00 Pure hypercholesterolemia, unspecified (principal)

== ENCOUNTER → 2020-10-15 | Outpatient (CLI) | payer MEDICARE ==
--- NOTE | 2020-10-15 17:51 | REP ---
INDICATION: SHORT OR BREATH COMPARISON: 04/13/2017. TECHNIQUE: PA/Lateral FINDINGS: Lungs: Clear, no infiltrate. Heart: Normal in size. Mediastinum: Mediastinal silhouette unremarkable. Pleural angles: Unremarkable.. Bones and soft tissues: There are degenerative changes of the spine. IMPRESSION: No acute pulmonary disease. <Electronically signed by Maco Lu > 10/15/20 [id number]
== END ==
LOC: M RAD 17:07
PROVIDERS: ATTEND Family Medicine
DX: R06.02 Shortness of breath (principal)

== ENCOUNTER → 2021-04-08 | Outpatient (CLI) | payer MEDICARE ==
[2021-04-08 10:41] LABS: HEMOGLOBIN A1c 7.1 %
[2021-04-08 11:08] LABS: ALBUMIN 3.3 GM/DL (3.2-5.2); BILIRUBIN,TOTAL 0.5 MG/DL (0.2-1.0); CALCIUM LEVEL 9.1 MG/DL (8.8-10.2); CHOLESTEROL RISK RATIO 3.686 (<5); CREATININE FOR GFR 0.97 MG/DL (0.55-1.30); FREE T4 1.41 NG/DL (0.76-1.46); POTASSIUM SERUM 4.5 MEQ/L (3.5-5.1); THYROID STIMULATING HORMONE 0.31 uIU/ML (0.358-3.740); TOTAL PROTEIN 6.5 GM/DL (6.4-8.2)
== END ==
LOC: M LAB 09:47
PROVIDERS: ATTEND Family Medicine
DX: E11.65 Type 2 diabetes mellitus with hyperglycemia (principal); E03.9 Hypothyroidism, unspecified; E78.00 Pure hypercholesterolemia, unspecified

== ENCOUNTER → 2021-09-09 | Outpatient (CLI) | payer MEDICARE ==
[~2021-09-09] MED LIST changes: +GLYB-150 PO; -GLYB5TAB12 PO
[2021-09-09 11:35] LABS: ALBUMIN 3.3 GM/DL (3.2-5.2); BILIRUBIN,TOTAL 0.3 MG/DL (0.2-1.0); CALCIUM LEVEL 8.8 MG/DL (8.8-10.2); CREATININE FOR GFR 0.98 MG/DL (0.55-1.30); FREE T4 1.33 NG/DL (0.76-1.46); GLOMERULAR FILTRATION RATE 57.3 (>32); POTASSIUM SERUM 4.4 MEQ/L (3.5-5.1); THYROID STIMULATING HORMONE 0.786 uIU/ML (0.358-3.740); TOTAL PROTEIN 7.2 GM/DL (6.4-8.2)
[2021-09-09 15:41] LABS: HEMOGLOBIN A1c 6.7 %
== END ==
LOC: M LAB 10:02
PROVIDERS: ATTEND Family Medicine
DX: E03.9 Hypothyroidism, unspecified (principal); N18.30 Chronic kidney disease, stage 3 unspecified; E11.22 Type 2 diabetes mellitus with diabetic chronic kidney disease

== ENCOUNTER → 2022-04-20 | Outpatient (CLI) | payer MEDICARE ==
[~2022-04-20] MED LIST changes: -POTA10CA32 PO; +POTA10CA33 PO
[2022-04-20 13:15] LABS: BASO # 0.1 10^3/uL (0.0-0.2); BASO % 0.9 % (0.0-1.0); EOS # 0.3 10^3/uL (0.0-0.5); EOS % 3.8 % (0.0-3.0); HEMOGLOBIN 12.8 g/dl (12.0-15.5); LYMPH # 1.6 10^3/uL (1.5-5.0); LYMPH % 21.6 % (24.0-44.0); MEAN CORPUSCULAR HEMOGLOBIN 28.6 pg (27.0-33.0); MEAN CORPUSCULAR HGB CONC 31.2 g/dl (32.0-36.5); MEAN CORPUSCULAR VOLUME 91.7 fl (80.0-96.0); MONO # 0.7 10^3/uL (0.0-0.8); MONO % 9.2 % (2.0-8.0); NEUTROPHILS # 4.7 10^3/uL (1.5-8.5); NEUTROPHILS % 64.2 % (36.0-66.0); PLATELET COUNT, AUTOMATED 248 10^3/uL (150-450); RED BLOOD COUNT 4.47 10^6/uL (4.00-5.40); WHITE BLOOD COUNT 7.4 10^3/uL (4.0-10.0)
[2022-04-20 13:34] LABS: CREATININE, URINE 113.7 MG/DL; MAU/CREAT RATIO 10.5 MCG/MG (0.0-30.0)
[2022-04-20 13:36] LABS: HEMOGLOBIN A1c 7.4 % (4.0-6.0)
[2022-04-20 13:43] LABS: ALBUMIN 3.6 G/DL (3.2-5.2); ALKALINE PHOSPHATASE 41 U/L (46-116); ALT/SGPT 11 U/L (7.0-40); AST/SGOT 12 U/L (<34); BILIRUBIN,TOTAL 0.6 MG/DL (0.3-1.2); BLOOD UREA NITROGEN 27 MG/DL (9-23); CALCIUM LEVEL 8.9 MG/DL (8.3-10.6); CARBON DIOXIDE LEVEL 24 MMOL/L (20-31); CHLORIDE LEVEL 108 MMOL/L (98-107); CHOLESTEROL LEVEL 187 MG/DL (<200); CHOLESTEROL RISK RATIO 3.62 (<5); FREE T4 1.57 NG/DL (0.89-1.76); GLOMERULAR FILTRATION RATE > 60.0 (>32); GLUCOSE, FASTING 197 MG/DL (74-106); HDL CHOLESTEROL 51.6 MG/DL (>40); LDL CHOLESTEROL 104.8 MG/DL (<100); NON-HDL-C 135.4 MG/DL; POTASSIUM SERUM 4.3 MMOL/L (3.5-5.1); SODIUM LEVEL 141 MMOL/L (136-145); THYROID STIMULATING HORMONE 0.338 uIU/ML (0.55-4.78); TOTAL 25(OH) VITAMIN D 36.1 NG/ML (20.0-100.0); TOTAL PROTEIN 6.3 G/DL (5.7-8.2); TRIGLYCERIDES LEVEL 153 MG/DL (<150)
== END ==
LOC: M LAB 10:08
PROVIDERS: ATTEND Family Medicine
DX: Z13.89 Encounter for screening for other disorder (principal); E03.9 Hypothyroidism, unspecified; E78.00 Pure hypercholesterolemia, unspecified; I12.9 Hypertensive chronic kidney disease with stage 1 through stage 4 chronic kidney disease, or unspecified chronic kidney disease

== ENCOUNTER 2022-06-26 14:02 | Inpatient (IN) | payer MEDICARE ==
[~2022-06-26] VITALS: Ht 157.5 cm; Wt 103.0 kg
[2022-06-26] MEDS ORDERED: BISACODYL 10MG SUPP PR ONE (16:25)
[2022-06-26] MEDS ORDERED: FLEET OIL RETENTION ENEMA PR ONE (17:50)
[2022-06-26] MEDS ORDERED: FLEET ENEMA PR ONE (20:50)
[2022-06-26] MEDS ORDERED: MAGNESIUM CITRATE 300ML BTL PO ONE (20:50)
[2022-06-26] MEDS ORDERED: NS 1,000 ML IV ONE (21:40)
[2022-06-26] MEDS ORDERED: METOPROLOL 5 MG/5 ML VIAL IV PRN (22:00)
[2022-06-26] MEDS ORDERED: ISOVUE-370 76% 100ML VIAL As Ordered ONE (22:04)
[2022-06-26 22:09] LABS: BASO # 0.1 10^3/uL (0.0-0.2); BASO % 0.8 % (0.0-1.0); EOS # 0.2 10^3/uL (0.0-0.5); EOS % 2.2 % (0.0-3.0); HEMATOCRIT 41.5 % (36.0-47.0); HEMOGLOBIN 13.4 g/dl (12.0-15.5); LYMPH # 2.2 10^3/uL (1.5-5.0); LYMPH % 23.6 % (24.0-44.0); MEAN CORPUSCULAR HEMOGLOBIN 29.8 pg (27.0-33.0); MEAN CORPUSCULAR HGB CONC 32.3 g/dl (32.0-36.5); MEAN CORPUSCULAR VOLUME 92.4 fl (80.0-96.0); MONO # 0.9 10^3/uL (0.0-0.8); MONO % 9.9 % (2.0-8.0); NEUTROPHILS # 5.8 10^3/uL (1.5-8.5); PLATELET COUNT, AUTOMATED 274 10^3/uL (150-450); RED BLOOD COUNT 4.49 10^6/uL (4.00-5.40); WHITE BLOOD COUNT 9.2 10^3/uL (4.0-10.0)
[2022-06-26 22:32] LABS: ALBUMIN 3.7 G/DL (3.2-5.2); BILIRUBIN,DIRECT 0.2 MG/DL (<0.4); BILIRUBIN,TOTAL 0.5 MG/DL (0.3-1.2); TOTAL PROTEIN 6.5 G/DL (5.7-8.2)
[2022-06-26] MEDS ORDERED: cefTRIAXone SOD 1 GM in D5W MINI-BAG PLUS 50 ML IV ONE (22:45)
[2022-06-26 23:01] LABS: RSV AMPLIFICATION NEGATIVE (NEGATIVE)
[2022-06-27] VITALS (8 sets, daily range): BP systolic 98–155; BP diastolic 54–73; TEMP 97.3–98.3; O2SAT 95–98
[2022-06-27] MEDS ORDERED: GLUC1TAB58 PO (01:52)
[2022-06-27] MEDS ORDERED: POTA10CA33 PO (01:52)
[2022-06-27] MEDS ORDERED: NOVO70VL SC ×2 (01:52)
[2022-06-27] MEDS ORDERED: TRAZ-186 PO (01:52)
[2022-06-27] MEDS ORDERED: PIOG1TAB55 PO (01:52)
[2022-06-27] MEDS ORDERED: SYNT100T PO (01:52)
[2022-06-27] MEDS ORDERED: ASPI-161 PO (01:52)
[2022-06-27] MEDS ORDERED: HOME MED LIST COMPLETE! XX SCH (01:55)
[2022-06-27] MEDS ORDERED: FLEET ENEMA PR ONE (02:45)
[2022-06-27] MEDS ORDERED: GLUCAGON INJ 1MG VIAL SC PRN (02:45)
[2022-06-27] MEDS ORDERED: DEXTROSE 50% 50ML SYRINGE IV PRN (02:45)
[2022-06-27] MEDS ORDERED: GLUCOSE 4GM CHEW TABLET PO PRN (02:45)
[2022-06-27] MEDS ORDERED: NS 1,000 ML IV SCH (02:45)
[2022-06-27] MEDS: ACETAMINOPHEN TAB 650MG DOSE (2X325MG) PO PRN ×2 (03:36→12:40)
[2022-06-27] MEDS ORDERED: diltiaZEM 125 MG in NS 100 ML IV SCH (04:30)
[2022-06-27] MEDS ORDERED: PILL CUTTER 1 EACH XX PRN (04:40)
[2022-06-27 05:00] LABS: THYROID STIMULATING HORMONE 0.356 uIU/ML (0.55-4.78)
[2022-06-27] MEDS: ULTRACET TAB PO PRN (05:06)
[2022-06-27] MEDS: LEVOTHYROXINE 100MCG TABLET (0.1MG) PO SCH (05:06)
[2022-06-27] MEDS ORDERED: METOPROLOL TART 25 MG TABLET PO SCH (07:10)
[2022-06-27 07:26] LABS: MAGNESIUM LEVEL 1.8 MG/DL (1.8-2.4)
[2022-06-27] MEDS: MAG SULF 1GM/100ML (MAG RUN) 1 GM in IV 1 EA IV SCH ×2 (08:41→10:00)
[2022-06-27] MEDS: INSULIN LISPRO (NovoLOG) PER UNIT SC SCH ×4 (08:41→21:00)
[2022-06-27] MEDS: HEPARIN SOD (PORCINE) 5000UNITS/ML 1ML VIAL/SYRINGE SC SCH ×4 (08:42→21:03)
[2022-06-27] MEDS: ENALAPRIL MALEATE 5 MG TAB PO SCH (08:42)
[2022-06-27] MEDS: ASPIRIN 81MG ENTERIC TABLET PO SCH (08:43)
[2022-06-27] MEDS: METOPROLOL TART 25 MG TABLET PO SCH ×3 (12:00→23:41)
[2022-06-27] MEDS: NYSTATIN 100,000 UNITS/GM TOPICAL PWD 15GM TOP SCH ×2 (14:45→20:57)
[2022-06-27] MEDS: traZODone 50 MG TAB PO SCH (20:57)
[2022-06-28 03:23] VITALS: BP 106/55; TEMP 97.3; O2SAT 96
[2022-06-28] MEDS ORDERED: cefTRIAXone SOD 1 GM in D5W MINI-BAG PLUS 50 ML IV SCH (04:00)
[2022-06-28 06:00] VITALS: TEMP 97.9
[2022-06-28] MEDS: METOPROLOL TART 25 MG TABLET PO SCH ×4 (06:00→23:45)
[2022-06-28] MEDS: LEVOTHYROXINE 112MCG TABLET (0.112MG) PO SCH (06:09)
[2022-06-28] MEDS: ACETAMINOPHEN TAB 650MG DOSE (2X325MG) PO PRN ×2 (06:13→12:57)
[2022-06-28 06:18] LABS: BLOOD UREA NITROGEN 16 MG/DL (9-23); CALCIUM LEVEL 7.7 MG/DL (8.3-10.6); CARBON DIOXIDE LEVEL 22 MMOL/L (20-31); CHLORIDE LEVEL 109 MMOL/L (98-107); CREATININE FOR GFR 0.72 MG/DL (0.55-1.30); GLOMERULAR FILTRATION RATE > 60.0 (>32); GLUCOSE, FASTING 136 MG/DL (74-106); POTASSIUM SERUM 4.5 MMOL/L (3.5-5.1); SODIUM LEVEL 141 MMOL/L (136-145)
[2022-06-28 07:38] LABS: BASO # 0.1 10^3/uL (0.0-0.2); BASO % 0.8 % (0.0-1.0); EOS # 0.3 10^3/uL (0.0-0.5); EOS % 4.7 % (0.0-3.0); HEMATOCRIT 37.3 % (36.0-47.0); HEMOGLOBIN 11.8 g/dl (12.0-15.5); LYMPH # 1.4 10^3/uL (1.5-5.0); LYMPH % 21.8 % (24.0-44.0); MEAN CORPUSCULAR HEMOGLOBIN 29.7 pg (27.0-33.0); MEAN CORPUSCULAR HGB CONC 31.6 g/dl (32.0-36.5); MONO # 0.8 10^3/uL (0.0-0.8); MONO % 13.2 % (2.0-8.0); NEUTROPHILS # 3.8 10^3/uL (1.5-8.5); PLATELET COUNT, AUTOMATED 213 10^3/uL (150-450); RED BLOOD COUNT 3.97 10^6/uL (4.00-5.40); WHITE BLOOD COUNT 6.4 10^3/uL (4.0-10.0)
[2022-06-28 07:43] VITALS: BP 122/57; TEMP 96.6; O2SAT 96
[2022-06-28] MEDS: INSULIN LISPRO (NovoLOG) PER UNIT SC SCH ×4 (08:36→21:00)
[2022-06-28] MEDS: ASPIRIN 81MG ENTERIC TABLET PO SCH (08:36)
[2022-06-28] MEDS: ENALAPRIL MALEATE 5 MG TAB PO SCH (08:36)
[2022-06-28] MEDS: NYSTATIN 100,000 UNITS/GM TOPICAL PWD 15GM TOP SCH ×2 (08:37→20:03)
[2022-06-28 16:22] VITALS: BP 140/61; TEMP 97.9; O2SAT 100
[2022-06-28] MEDS: traZODone 50 MG TAB PO SCH (20:01)
[2022-06-28] MEDS: CEFDINIR 300 MG CAP (OMNICEF) PO SCH (20:01)
[2022-06-28] MEDS: HEPARIN SOD (PORCINE) 5000UNITS/ML 1ML VIAL/SYRINGE SC SCH (20:02)
[2022-06-28] MEDS ORDERED: diphenhydrAMINE 25MG CAP PO ONE (23:45)
[2022-06-29] MEDS: METOPROLOL TART 25 MG TABLET PO SCH ×3 (05:25→20:38)
[2022-06-29] MEDS: SENNA 8.6 MG TAB (SENOKOT) PO PRN (05:27)
[2022-06-29] MEDS: LEVOTHYROXINE 100MCG TABLET (0.1MG) PO SCH (05:27)
[2022-06-29 06:00] VITALS: BP 118/68; TEMP 97.7; O2SAT 94
[2022-06-29] MEDS: ASPIRIN 81MG ENTERIC TABLET PO SCH (09:33)
[2022-06-29] MEDS: CEFDINIR 300 MG CAP (OMNICEF) PO SCH ×2 (09:33→20:46)
[2022-06-29] MEDS: INSULIN LISPRO (NovoLOG) PER UNIT SC SCH ×4 (09:33→20:39)
[2022-06-29] MEDS: HEPARIN SOD (PORCINE) 5000UNITS/ML 1ML VIAL/SYRINGE SC SCH (09:34)
[2022-06-29] MEDS: NYSTATIN 100,000 UNITS/GM TOPICAL PWD 15GM TOP SCH ×2 (09:38→20:47)
[2022-06-29] MEDS: ACETAMINOPHEN TAB 650MG DOSE (2X325MG) PO PRN ×2 (09:41→18:25)
[2022-06-29] MEDS: ENALAPRIL MALEATE 5 MG TAB PO SCH (10:09)
[2022-06-29] MEDS: LEVEMIR (INSULIN DETEMIR) 1 UNITS/0.01ML SC SCH ×2 (12:09→20:47)
[2022-06-29 12:10] LABS: HEMOGLOBIN A1c 7.5 % (4.0-6.0)
[2022-06-29 14:59] LABS: INR 1.07; PROTHROMBIN TIME 14.1 SECONDS (12.5-14.5)
[2022-06-29 15:00] LABS: PARTIAL THROMBOPLASTIN TIME 27.3 SECONDS (24.8-34.2)
[2022-06-29 15:07] VITALS: BP 145/69
[2022-06-29] MEDS: RIVAROXABAN 10MG TAB (XARELTO) PO SCH (17:30)
[2022-06-29] MEDS: ATORVASTATIN 20 MG TAB PO SCH (17:30)
[2022-06-29] MEDS: traZODone 50 MG TAB PO SCH (20:46)
[2022-06-29] MEDS: diphenhydrAMINE 25MG CAP PO PRN (20:46)
[2022-06-30 05:20] VITALS: BP 137/70; TEMP 97.5; O2SAT 98
[2022-06-30] MEDS: LEVOTHYROXINE 112MCG TABLET (0.112MG) PO SCH (05:32)
[2022-06-30] MEDS: MIRALAX *UNIT DOSE* 17GM PACKET PO PRN (05:32)
[2022-06-30] MEDS: SENNA 8.6 MG TAB (SENOKOT) PO PRN (05:32)
[2022-06-30] MEDS: ENALAPRIL MALEATE 5 MG TAB PO SCH (08:20)
[2022-06-30] MEDS: CEFDINIR 300 MG CAP (OMNICEF) PO SCH ×2 (08:20→20:03)
[2022-06-30] MEDS: ASPIRIN 81MG ENTERIC TABLET PO SCH (08:20)
[2022-06-30] MEDS: METOPROLOL TART 25 MG TABLET PO SCH ×2 (08:21→20:05)
[2022-06-30] MEDS: INSULIN LISPRO (NovoLOG) PER UNIT SC SCH ×4 (08:22→20:05)
[2022-06-30] MEDS: LEVEMIR (INSULIN DETEMIR) 1 UNITS/0.01ML SC SCH ×2 (08:23→20:03)
[2022-06-30] MEDS: NYSTATIN 100,000 UNITS/GM TOPICAL PWD 15GM TOP SCH ×2 (08:23→20:05)
[2022-06-30] MEDS: RIVAROXABAN 10MG TAB (XARELTO) PO SCH (17:11)
[2022-06-30] MEDS: traZODone 50 MG TAB PO SCH (20:04)
[2022-06-30] MEDS: diphenhydrAMINE 25MG CAP PO PRN (20:10)
[2022-06-30] MEDS: ACETAMINOPHEN TAB 650MG DOSE (2X325MG) PO PRN (21:54)
[2022-07-01] MEDS: LEVOTHYROXINE 100MCG TABLET (0.1MG) PO SCH (05:43)
[2022-07-01 06:00] VITALS: BP 149/98; TEMP 97.3; O2SAT 96
[2022-07-01] MEDS: ENALAPRIL MALEATE 5 MG TAB PO SCH (09:12)
[2022-07-01] MEDS: METOPROLOL TART 25 MG TABLET PO SCH ×2 (09:12→20:32)
[2022-07-01] MEDS: ASPIRIN 81MG ENTERIC TABLET PO SCH (09:12)
[2022-07-01] MEDS: LEVEMIR (INSULIN DETEMIR) 1 UNITS/0.01ML SC SCH ×2 (09:13→20:31)
[2022-07-01] MEDS: INSULIN LISPRO (NovoLOG) PER UNIT SC SCH ×4 (09:13→20:33)
[2022-07-01] MEDS: NYSTATIN 100,000 UNITS/GM TOPICAL PWD 15GM TOP SCH ×2 (09:16→20:34)
[2022-07-01] MEDS: CEFDINIR 300 MG CAP (OMNICEF) PO SCH ×2 (09:24→20:32)
[2022-07-01] MEDS: ACETAMINOPHEN TAB 650MG DOSE (2X325MG) PO PRN (15:52)
[2022-07-01] MEDS: RIVAROXABAN 10MG TAB (XARELTO) PO SCH (17:31)
[2022-07-01] MEDS: diphenhydrAMINE 25MG CAP PO PRN (20:31)
[2022-07-01] MEDS: traZODone 50 MG TAB PO SCH (20:32)
[2022-07-02] MEDS: LEVOTHYROXINE 100MCG TABLET (0.1MG) PO SCH (05:40)
[2022-07-02 06:00] VITALS: BP 146/74; TEMP 97.5; O2SAT 95
[2022-07-02] MEDS: MIRALAX *UNIT DOSE* 17GM PACKET PO PRN (08:20)
[2022-07-02] MEDS: ENALAPRIL MALEATE 5 MG TAB PO SCH (08:20)
[2022-07-02] MEDS: ASPIRIN 81MG ENTERIC TABLET PO SCH (08:20)
[2022-07-02] MEDS: METOPROLOL TART 25 MG TABLET PO SCH ×2 (08:20→21:16)
[2022-07-02] MEDS: SENNA 8.6 MG TAB (SENOKOT) PO PRN (08:20)
[2022-07-02] MEDS: LEVEMIR (INSULIN DETEMIR) 1 UNITS/0.01ML SC SCH ×2 (08:21→21:14)
[2022-07-02] MEDS: INSULIN LISPRO (NovoLOG) PER UNIT SC SCH ×4 (08:21→21:00)
[2022-07-02 08:22] VITALS: BP 146/75
[2022-07-02] MEDS: NYSTATIN 100,000 UNITS/GM TOPICAL PWD 15GM TOP SCH ×2 (08:22→21:14)
[2022-07-02] MEDS: RIVAROXABAN 10MG TAB (XARELTO) PO SCH (17:18)
[2022-07-02] MEDS: traZODone 50 MG TAB PO SCH (21:15)
[2022-07-02] MEDS: diphenhydrAMINE 25MG CAP PO PRN (21:16)
[2022-07-03] MEDS: LEVOTHYROXINE 112MCG TABLET (0.112MG) PO SCH (05:06)
[2022-07-03 05:10] VITALS: BP 139/59; TEMP 97.7; O2SAT 96
[2022-07-03] MEDS ORDERED: LACTULOSE 20GM/30ML SYRUP UDC PO ONE (08:20)
[2022-07-03] MEDS: ASPIRIN 81MG ENTERIC TABLET PO SCH (08:58)
[2022-07-03] MEDS: METOPROLOL TART 25 MG TABLET PO SCH ×2 (08:59→21:00)
[2022-07-03] MEDS: ENALAPRIL MALEATE 5 MG TAB PO SCH (09:00)
[2022-07-03] MEDS: LEVEMIR (INSULIN DETEMIR) 1 UNITS/0.01ML SC SCH ×2 (09:00→21:17)
[2022-07-03] MEDS: INSULIN LISPRO (NovoLOG) PER UNIT SC SCH ×4 (09:01→21:00)
[2022-07-03] MEDS: NYSTATIN 100,000 UNITS/GM TOPICAL PWD 15GM TOP SCH ×2 (09:01→21:17)
[2022-07-03] MEDS: MIRALAX *UNIT DOSE* 17GM PACKET PO SCH (12:42)
[2022-07-03] MEDS: ATORVASTATIN 20 MG TAB PO SCH (17:23)
[2022-07-03] MEDS: RIVAROXABAN 10MG TAB (XARELTO) PO SCH (17:23)
[2022-07-03] MEDS: traZODone 50 MG TAB PO SCH (21:16)
[2022-07-03] MEDS: SENNA 8.6 MG TAB (SENOKOT) PO PRN (21:17)
[2022-07-03] MEDS: diphenhydrAMINE 25MG CAP PO PRN (21:17)
[2022-07-04] MEDS: ULTRACET TAB PO PRN (00:01)
[2022-07-04 05:29] VITALS: BP 132/63; TEMP 97.9; O2SAT 92
[2022-07-04] MEDS: LEVOTHYROXINE 100MCG TABLET (0.1MG) PO SCH (06:02)
[2022-07-04] MEDS: NYSTATIN 100,000 UNITS/GM TOPICAL PWD 15GM TOP SCH ×2 (08:19→20:52)
[2022-07-04] MEDS: INSULIN LISPRO (NovoLOG) PER UNIT SC SCH ×4 (08:20→20:47)
[2022-07-04] MEDS: MIRALAX *UNIT DOSE* 17GM PACKET PO SCH (08:21)
[2022-07-04] MEDS: METOPROLOL TART 25 MG TABLET PO SCH ×2 (08:21→20:47)
[2022-07-04] MEDS: ASPIRIN 81MG ENTERIC TABLET PO SCH (08:21)
[2022-07-04] MEDS: LEVEMIR (INSULIN DETEMIR) 1 UNITS/0.01ML SC SCH ×2 (08:21→20:51)
[2022-07-04] MEDS: ENALAPRIL MALEATE 5 MG TAB PO SCH (08:21)
[2022-07-04 09:08] VITALS: BP 144/73; O2SAT 98
[2022-07-04] MEDS: RIVAROXABAN 10MG TAB (XARELTO) PO SCH (18:31)
[2022-07-04] MEDS ORDERED: IBUPROFEN 600MG TAB PO PRN (19:55)
[2022-07-04 20:20] VITALS: BP 101/65; TEMP 98.1; O2SAT 95
[2022-07-04] MEDS: traZODone 50 MG TAB PO SCH (20:47)
[2022-07-04] MEDS: SENOKOT S TAB PO SCH (20:51)
[2022-07-04] MEDS: RAMELTEON 8 MG TAB (ROZEREM) PO PRN (20:52)
[2022-07-05] MEDS: LEVOTHYROXINE 112MCG TABLET (0.112MG) PO SCH (05:28)
[2022-07-05 05:53] VITALS: BP 118/63; TEMP 97.9; O2SAT 96
[2022-07-05 07:30] LABS: BASO # 0.1 10^3/uL (0.0-0.2); EOS # 0.4 10^3/uL (0.0-0.5); EOS % 5.9 % (0.0-3.0); HEMATOCRIT 42.8 % (36.0-47.0); HEMOGLOBIN 13.7 g/dl (12.0-15.5); LYMPH # 1.6 10^3/uL (1.5-5.0); LYMPH % 22.5 % (24.0-44.0); MEAN CORPUSCULAR HEMOGLOBIN 29.5 pg (27.0-33.0); MEAN CORPUSCULAR VOLUME 92.2 fl (80.0-96.0); MONO # 0.9 10^3/uL (0.0-0.8); NEUTROPHILS # 4.1 10^3/uL (1.5-8.5); NEUTROPHILS % 57.2 % (36.0-66.0); PLATELET COUNT, AUTOMATED 249 10^3/uL (150-450); RED BLOOD COUNT 4.64 10^6/uL (4.00-5.40); WHITE BLOOD COUNT 7.2 10^3/uL (4.0-10.0)
[2022-07-05 08:09] LABS: BLOOD UREA NITROGEN 24 MG/DL (9-23); CALCIUM LEVEL 8.8 MG/DL (8.3-10.6); CARBON DIOXIDE LEVEL 25 MMOL/L (20-31); CHLORIDE LEVEL 107 MMOL/L (98-107); CREATININE FOR GFR 0.75 MG/DL (0.55-1.30); GLOMERULAR FILTRATION RATE > 60.0 (>32); GLUCOSE, FASTING 158 MG/DL (74-106); POTASSIUM SERUM 4.1 MMOL/L (3.5-5.1); SODIUM LEVEL 140 MMOL/L (136-145)
[2022-07-05] MEDS: INSULIN LISPRO (NovoLOG) PER UNIT SC SCH ×4 (09:12→20:24)
[2022-07-05] MEDS: LEVEMIR (INSULIN DETEMIR) 1 UNITS/0.01ML SC SCH ×2 (09:13→20:24)
[2022-07-05] MEDS: ENALAPRIL MALEATE 5 MG TAB PO SCH (09:13)
[2022-07-05] MEDS: SENOKOT S TAB PO SCH ×2 (09:13→20:24)
[2022-07-05] MEDS: MIRALAX *UNIT DOSE* 17GM PACKET PO SCH (09:14)
[2022-07-05] MEDS: ASPIRIN 81MG ENTERIC TABLET PO SCH (09:14)
[2022-07-05] MEDS: METOPROLOL TART 25 MG TABLET PO SCH ×2 (09:14→20:23)
[2022-07-05] MEDS: NYSTATIN 100,000 UNITS/GM TOPICAL PWD 15GM TOP SCH ×2 (09:15→20:24)
[2022-07-05 12:13] VITALS: BP_SYST 114; BP_SYST 62; BP_SYST 96; BP_DIAS 38; BP_DIAS 50; BP_DIAS 62
[2022-07-05] MEDS: FLUDROCORTISONE ACETATE 0.1 MG TAB PO SCH (12:19)
[2022-07-05] MEDS: RIVAROXABAN 10MG TAB (XARELTO) PO SCH (17:44)
[2022-07-05 20:14] VITALS: BP 122/60; TEMP 97.5; O2SAT 96
[2022-07-05] MEDS: traZODone 25MG PER 1/2 TABLET PO SCH (20:23)
[2022-07-05] MEDS: RAMELTEON 8 MG TAB (ROZEREM) PO PRN (20:24)
[2022-07-05] MEDS: ACETAMINOPHEN 500 MG TAB PO PRN (20:25)
[2022-07-06 06:02] VITALS: BP_SYST 117; BP_SYST 123; BP_SYST 83; BP_DIAS 46; BP_DIAS 55; BP_DIAS 80
[2022-07-06] MEDS: LEVOTHYROXINE 100MCG TABLET (0.1MG) PO SCH (06:02)
[2022-07-06 06:07] VITALS: BP 117/46; TEMP 97.7; O2SAT 95
[2022-07-06] MEDS: INSULIN LISPRO (NovoLOG) PER UNIT SC SCH ×4 (08:24→20:25)
[2022-07-06] MEDS: LEVEMIR (INSULIN DETEMIR) 1 UNITS/0.01ML SC SCH ×2 (08:25→20:38)
[2022-07-06] MEDS: FLUDROCORTISONE ACETATE 0.1 MG TAB PO SCH (08:25)
[2022-07-06] MEDS: ASPIRIN 81MG ENTERIC TABLET PO SCH (08:25)
[2022-07-06] MEDS: SENOKOT S TAB PO SCH ×2 (08:25→20:37)
[2022-07-06] MEDS: NYSTATIN 100,000 UNITS/GM TOPICAL PWD 15GM TOP SCH ×2 (08:27→20:38)
[2022-07-06] MEDS: MIRALAX *UNIT DOSE* 17GM PACKET PO SCH (08:27)
[2022-07-06 08:28] VITALS: BP 111/50
[2022-07-06] MEDS: METOPROLOL TART 25 MG TABLET PO SCH (08:28)
[2022-07-06] MEDS: DIGOXIN 0.25 MG TAB PO SCH (12:13)
[2022-07-06 15:26] VITALS: BP_SYST 125; BP_SYST 141; BP_SYST 75; BP_DIAS 39; BP_DIAS 56; BP_DIAS 65
[2022-07-06] MEDS: ATORVASTATIN 20 MG TAB PO SCH (17:53)
[2022-07-06] MEDS: RIVAROXABAN 10MG TAB (XARELTO) PO SCH (17:54)
[2022-07-06] MEDS: traZODone 25MG PER 1/2 TABLET PO SCH (20:37)
[2022-07-06] MEDS ORDERED: METOPROLOL TART 12.5 MG PER 1/2 TAB PO SCH (21:00)
[2022-07-06] MEDS: ACETAMINOPHEN 500 MG TAB PO PRN (23:50)
[2022-07-07] MEDS: LEVOTHYROXINE 112MCG TABLET (0.112MG) PO SCH (05:54)
[2022-07-07 06:27] VITALS: BP 135/69; TEMP 97.5; O2SAT 96
[2022-07-07 06:30] VITALS: BP_SYST 141; BP_SYST 146; BP_SYST 90; BP_DIAS 45; BP_DIAS 73; BP_DIAS 81
[2022-07-07] MEDS: LEVEMIR (INSULIN DETEMIR) 1 UNITS/0.01ML SC SCH ×2 (08:46→20:09)
[2022-07-07] MEDS: MIRALAX *UNIT DOSE* 17GM PACKET PO SCH (08:46)
[2022-07-07] MEDS: INSULIN LISPRO (NovoLOG) PER UNIT SC SCH ×4 (08:47→20:09)
[2022-07-07] MEDS: SENOKOT S TAB PO SCH ×2 (08:47→20:08)
[2022-07-07] MEDS: ASPIRIN 81MG ENTERIC TABLET PO SCH (08:47)
[2022-07-07] MEDS: NYSTATIN 100,000 UNITS/GM TOPICAL PWD 15GM TOP SCH ×2 (08:48→20:09)
[2022-07-07] MEDS: FLUDROCORTISONE ACETATE 0.1 MG TAB PO SCH (08:48)
[2022-07-07] MEDS: DIGOXIN 0.25 MG TAB PO SCH (08:48)
[2022-07-07 15:38] VITALS: BP_SYST 107; BP_SYST 146; BP_DIAS 57; BP_DIAS 65
[2022-07-07] MEDS: RIVAROXABAN 10MG TAB (XARELTO) PO SCH (17:46)
[2022-07-07 19:40] VITALS: BP 148/69; TEMP 98.1; O2SAT 94
[2022-07-07] MEDS: traZODone 25MG PER 1/2 TABLET PO SCH (20:08)
[2022-07-07] MEDS: RAMELTEON 8 MG TAB (ROZEREM) PO PRN (20:08)
[2022-07-07] MEDS: BISACODYL 10MG SUPP PR PRN (23:08)
[2022-07-08] MEDS: LEVOTHYROXINE 100MCG TABLET (0.1MG) PO SCH (05:20)
[2022-07-08 05:27] VITALS: BP 148/72; TEMP 98.1; O2SAT 95
[2022-07-08] MEDS: INSULIN LISPRO (NovoLOG) PER UNIT SC SCH ×4 (07:30→20:25)
[2022-07-08] MEDS: LEVEMIR (INSULIN DETEMIR) 1 UNITS/0.01ML SC SCH ×2 (09:18→20:25)
[2022-07-08] MEDS: ASPIRIN 81MG ENTERIC TABLET PO SCH (09:18)
[2022-07-08] MEDS: SENOKOT S TAB PO SCH ×2 (09:18→20:25)
[2022-07-08] MEDS: FLUDROCORTISONE ACETATE 0.1 MG TAB PO SCH (09:18)
[2022-07-08] MEDS: DIGOXIN 0.25 MG TAB PO SCH (09:19)
[2022-07-08] MEDS: NYSTATIN 100,000 UNITS/GM TOPICAL PWD 15GM TOP SCH ×2 (09:19→20:26)
[2022-07-08] MEDS: MIRALAX *UNIT DOSE* 17GM PACKET PO SCH (09:19)
[2022-07-08 09:50] VITALS: BP_SYST 132; BP_SYST 151; BP_SYST 98; BP_DIAS 57; BP_DIAS 69; BP_DIAS 73
[2022-07-08 14:00] VITALS: BP 110/61; TEMP 97.9; O2SAT 95
[2022-07-08] MEDS: RIVAROXABAN 10MG TAB (XARELTO) PO SCH (18:12)
[2022-07-08 19:55] VITALS: BP 142/60; TEMP 97.5; O2SAT 97
[2022-07-08] MEDS: RAMELTEON 8 MG TAB (ROZEREM) PO PRN (20:25)
[2022-07-08] MEDS: traZODone 25MG PER 1/2 TABLET PO SCH (20:25)
[2022-07-09 05:34] VITALS: BP_SYST 133; BP_SYST 143; BP_SYST 84; BP_DIAS 65; BP_DIAS 70
[2022-07-09] MEDS: LEVOTHYROXINE 100MCG TABLET (0.1MG) PO SCH (05:36)
[2022-07-09 06:00] VITALS: O2SAT 96
[2022-07-09 06:14] VITALS: TEMP 97.7
[2022-07-09 09:07] LABS: BLOOD UREA NITROGEN 20 MG/DL (9-23); CARBON DIOXIDE LEVEL 25 MMOL/L (20-31); CHLORIDE LEVEL 110 MMOL/L (98-107); CREATININE FOR GFR 0.73 MG/DL (0.55-1.30); GLOMERULAR FILTRATION RATE > 60.0 (>32); GLUCOSE, FASTING 194 MG/DL (74-106); POTASSIUM SERUM 3.9 MMOL/L (3.5-5.1); SODIUM LEVEL 141 MMOL/L (136-145)
[2022-07-09] MEDS: MIRALAX *UNIT DOSE* 17GM PACKET PO SCH (09:18)
[2022-07-09] MEDS: SENOKOT S TAB PO SCH ×2 (09:18→20:36)
[2022-07-09] MEDS: ASPIRIN 81MG ENTERIC TABLET PO SCH (09:18)
[2022-07-09] MEDS: FLUDROCORTISONE ACETATE 0.1 MG TAB PO SCH (09:18)
[2022-07-09] MEDS: LEVEMIR (INSULIN DETEMIR) 1 UNITS/0.01ML SC SCH ×2 (09:18→20:37)
[2022-07-09] MEDS: INSULIN LISPRO (NovoLOG) PER UNIT SC SCH ×4 (09:18→20:37)
[2022-07-09] MEDS: NYSTATIN 100,000 UNITS/GM TOPICAL PWD 15GM TOP SCH ×2 (09:19→20:37)
[2022-07-09] MEDS: DIGOXIN 0.25 MG TAB PO SCH (09:19)
[2022-07-09 14:00] VITALS: BP 103/60; TEMP 97.3; O2SAT 96
[2022-07-09] MEDS: RIVAROXABAN 10MG TAB (XARELTO) PO SCH (18:58)
[2022-07-09 20:26] VITALS: BP 132/69; TEMP 97.7; O2SAT 97
[2022-07-09] MEDS: RAMELTEON 8 MG TAB (ROZEREM) PO PRN (20:36)
[2022-07-09] MEDS: traZODone 25MG PER 1/2 TABLET PO SCH (20:36)
[2022-07-10] MEDS: ACETAMINOPHEN 500 MG TAB PO PRN (00:05)
[2022-07-10 06:00] VITALS: BP 133/73; TEMP 97.5; O2SAT 96
[2022-07-10] MEDS: LEVOTHYROXINE 112MCG TABLET (0.112MG) PO SCH (06:07)
[2022-07-10 06:08] VITALS: BP_SYST 137; BP_SYST 139; BP_SYST 141; BP_DIAS 67; BP_DIAS 73; BP_DIAS 74
[2022-07-10 06:11] LABS: BASO # 0.1 10^3/uL (0.0-0.2); EOS # 0.4 10^3/uL (0.0-0.5); EOS % 6.3 % (0.0-3.0); HEMATOCRIT 39.6 % (36.0-47.0); HEMOGLOBIN 12.7 g/dl (12.0-15.5); LYMPH # 1.8 10^3/uL (1.5-5.0); LYMPH % 26.8 % (24.0-44.0); MEAN CORPUSCULAR HEMOGLOBIN 29.8 pg (27.0-33.0); MEAN CORPUSCULAR HGB CONC 32.1 g/dl (32.0-36.5); MONO # 0.8 10^3/uL (0.0-0.8); MONO % 11.7 % (2.0-8.0); NEUTROPHILS # 3.7 10^3/uL (1.5-8.5); NEUTROPHILS % 53.8 % (36.0-66.0); PLATELET COUNT, AUTOMATED 273 10^3/uL (150-450); RED BLOOD COUNT 4.26 10^6/uL (4.00-5.40); WHITE BLOOD COUNT 6.8 10^3/uL (4.0-10.0)
[2022-07-10 06:36] LABS: DIGOXIN LEVEL 0.8 NG/ML (0.8-2.0)
[2022-07-10 06:39] LABS: FREE T4 1.66 NG/DL (0.89-1.76); THYROID STIMULATING HORMONE 0.303 uIU/ML (0.55-4.78)
[2022-07-10] MEDS: ASPIRIN 81MG ENTERIC TABLET PO SCH (08:18)
[2022-07-10] MEDS: SENOKOT S TAB PO SCH ×3 (08:18→21:43)
[2022-07-10] MEDS: FLUDROCORTISONE ACETATE 0.1 MG TAB PO SCH (08:19)
[2022-07-10] MEDS: LEVEMIR (INSULIN DETEMIR) 1 UNITS/0.01ML SC SCH ×2 (08:19→21:44)
[2022-07-10] MEDS: DIGOXIN 0.25 MG TAB PO SCH (08:19)
[2022-07-10] MEDS: NYSTATIN 100,000 UNITS/GM TOPICAL PWD 15GM TOP SCH ×2 (08:20→21:45)
[2022-07-10] MEDS: INSULIN LISPRO (NovoLOG) PER UNIT SC SCH ×4 (08:20→21:00)
[2022-07-10] MEDS: MIRALAX *UNIT DOSE* 17GM PACKET PO SCH (08:20)
[2022-07-10] MEDS ORDERED: MOM 30ML SUSPENSION UDC PO ONE (10:50)
[2022-07-10] MEDS: BISACODYL 10MG SUPP PR PRN (11:52)
[2022-07-10 14:00] VITALS: BP 148/66; TEMP 97.7; O2SAT 97
[2022-07-10 14:10] VITALS: BP_SYST 124; BP_SYST 125; BP_SYST 148; BP_DIAS 65; BP_DIAS 66
[2022-07-10] MEDS: ATORVASTATIN 20 MG TAB PO SCH (17:37)
[2022-07-10] MEDS: RIVAROXABAN 10MG TAB (XARELTO) PO SCH (17:37)
[2022-07-10 20:50] VITALS: BP 140/56; TEMP 97.5; O2SAT 96
[2022-07-10] MEDS: traZODone 25MG PER 1/2 TABLET PO SCH (21:45)
[2022-07-11] MEDS: LEVOTHYROXINE 100MCG TABLET (0.1MG) PO SCH (05:55)
[2022-07-11 06:00] VITALS: BP 139/62; TEMP 98.1; O2SAT 96
[2022-07-11] MEDS: LEVEMIR (INSULIN DETEMIR) 1 UNITS/0.01ML SC SCH ×2 (08:26→20:37)
[2022-07-11] MEDS: ASPIRIN 81MG ENTERIC TABLET PO SCH (08:26)
[2022-07-11] MEDS: SENOKOT S TAB PO SCH ×2 (08:26→21:00)
[2022-07-11] MEDS: FLUDROCORTISONE ACETATE 0.1 MG TAB PO SCH (08:26)
[2022-07-11] MEDS: MIRALAX *UNIT DOSE* 17GM PACKET PO SCH (08:26)
[2022-07-11] MEDS: NYSTATIN 100,000 UNITS/GM TOPICAL PWD 15GM TOP SCH ×2 (08:27→20:38)
[2022-07-11] MEDS: INSULIN LISPRO (NovoLOG) PER UNIT SC SCH ×4 (08:27→21:00)
[2022-07-11] MEDS: DIGOXIN 0.25 MG TAB PO SCH (08:28)
[2022-07-11] MEDS: MIDODRINE 2.5 MG TAB PO SCH ×2 (12:43→17:07)
[2022-07-11 15:45] VITALS: BP_SYST 118; BP_SYST 130; BP_SYST 96; BP_DIAS 50; BP_DIAS 54; BP_DIAS 62
[2022-07-11] MEDS: RIVAROXABAN 10MG TAB (XARELTO) PO SCH (17:07)
[2022-07-11] MEDS: traZODone 25MG PER 1/2 TABLET PO SCH (20:37)
[2022-07-12 05:45] VITALS: BP 156/73; TEMP 97.5; O2SAT 96
[2022-07-12] MEDS: LEVOTHYROXINE 100MCG TABLET (0.1MG) PO SCH (06:24)
[2022-07-12] MEDS: MIDODRINE 2.5 MG TAB PO SCH (08:24)
[2022-07-12] MEDS: SENOKOT S TAB PO SCH ×2 (08:25→21:00)
[2022-07-12] MEDS: LEVEMIR (INSULIN DETEMIR) 1 UNITS/0.01ML SC SCH ×2 (08:25→21:00)
[2022-07-12] MEDS: ASPIRIN 81MG ENTERIC TABLET PO SCH (08:25)
[2022-07-12] MEDS: FLUDROCORTISONE ACETATE 0.1 MG TAB PO SCH (08:25)
[2022-07-12] MEDS: MIRALAX *UNIT DOSE* 17GM PACKET PO SCH (08:25)
[2022-07-12] MEDS: DIGOXIN 0.25 MG TAB PO SCH (08:25)
[2022-07-12] MEDS: NYSTATIN 100,000 UNITS/GM TOPICAL PWD 15GM TOP SCH ×2 (08:26→21:00)
[2022-07-12] MEDS: INSULIN LISPRO (NovoLOG) PER UNIT SC SCH ×4 (08:26→20:43)
[2022-07-12 10:28] VITALS: BP_SYST 120; BP_SYST 130; BP_SYST 157; BP_SYST 92; BP_DIAS 58; BP_DIAS 59; BP_DIAS 60
[2022-07-12] MEDS: MIDODRINE 5 MG TAB PO SCH ×2 (13:19→18:19)
[2022-07-12] MEDS ORDERED: NS 1,000 ML IV ONE (18:05)
[2022-07-12] MEDS: RIVAROXABAN 10MG TAB (XARELTO) PO SCH (18:19)
[2022-07-12 20:48] VITALS: BP 154/60; TEMP 97.5; O2SAT 95
[2022-07-12 21:00] VITALS: BP 157/60
[2022-07-12] MEDS: traZODone 25MG PER 1/2 TABLET PO SCH (21:00)
[2022-07-13 05:20] VITALS: BP 131/49; TEMP 97.5; O2SAT 96
[2022-07-13] MEDS: LEVOTHYROXINE 100MCG TABLET (0.1MG) PO SCH (05:33)
[2022-07-13] MEDS: SENOKOT S TAB PO SCH ×2 (08:28→20:28)
[2022-07-13] MEDS: FLUDROCORTISONE ACETATE 0.1 MG TAB PO SCH (08:28)
[2022-07-13] MEDS: ASPIRIN 81MG ENTERIC TABLET PO SCH (08:28)
[2022-07-13] MEDS: MIDODRINE 5 MG TAB PO SCH ×3 (08:28→15:57)
[2022-07-13] MEDS: MIRALAX *UNIT DOSE* 17GM PACKET PO SCH (08:29)
[2022-07-13] MEDS: LEVEMIR (INSULIN DETEMIR) 1 UNITS/0.01ML SC SCH ×2 (08:29→20:53)
[2022-07-13] MEDS: INSULIN LISPRO (NovoLOG) PER UNIT SC SCH ×4 (08:30→20:31)
[2022-07-13] MEDS: DIGOXIN 0.25 MG TAB PO SCH (08:31)
[2022-07-13] MEDS: NYSTATIN 100,000 UNITS/GM TOPICAL PWD 15GM TOP SCH ×2 (08:31→20:53)
[2022-07-13 08:32] VITALS: BP 133/53
[2022-07-13 10:00] VITALS: BP_SYST 120; BP_SYST 142; BP_SYST 151; BP_DIAS 60; BP_DIAS 69; BP_DIAS 70
[2022-07-13 13:39] LABS: BLOOD UREA NITROGEN 17 MG/DL (9-23); CALCIUM LEVEL 8.3 MG/DL (8.3-10.6); CARBON DIOXIDE LEVEL 27 MMOL/L (20-31); CHLORIDE LEVEL 108 MMOL/L (98-107); CREATININE FOR GFR 0.76 MG/DL (0.55-1.30); GLOMERULAR FILTRATION RATE > 60.0 (>32); GLUCOSE, FASTING 184 MG/DL (74-106); MAGNESIUM LEVEL 1.7 MG/DL (1.8-2.4); PHOSPHORUS LEVEL 3.7 MG/DL (2.4-5.1); POTASSIUM SERUM 3.9 MMOL/L (3.5-5.1); SODIUM LEVEL 142 MMOL/L (136-145)
[2022-07-13 14:00] VITALS: BP 147/62; TEMP 97.7; O2SAT 100
[2022-07-13] MEDS ORDERED: MAGNESIUM OXIDE 400MG TAB (MAG-OX) PO ONE (14:15)
[2022-07-13] MEDS: ATORVASTATIN 20 MG TAB PO SCH (17:29)
[2022-07-13] MEDS: RIVAROXABAN 10MG TAB (XARELTO) PO SCH (17:29)
[2022-07-13 20:00] VITALS: BP 151/65; TEMP 97.3; O2SAT 95
[2022-07-13 20:34] VITALS: BP 154/63
[2022-07-13] MEDS: traZODone 25MG PER 1/2 TABLET PO SCH (20:52)
[2022-07-14] MEDS: LEVOTHYROXINE 100MCG TABLET (0.1MG) PO SCH (05:32)
[2022-07-14 06:20] VITALS: BP 169/65; TEMP 97.5; O2SAT 97
[2022-07-14 08:53] VITALS: BP 104/59
[2022-07-14] MEDS: INSULIN LISPRO (NovoLOG) PER UNIT SC SCH ×2 (08:54→12:12)
[2022-07-14] MEDS: LEVEMIR (INSULIN DETEMIR) 1 UNITS/0.01ML SC SCH (08:54)
[2022-07-14] MEDS: ASPIRIN 81MG ENTERIC TABLET PO SCH (08:54)
[2022-07-14] MEDS: DIGOXIN 0.25 MG TAB PO SCH (08:55)
[2022-07-14] MEDS: MIDODRINE 5 MG TAB PO SCH ×2 (08:55→12:12)
[2022-07-14] MEDS: FLUDROCORTISONE ACETATE 0.1 MG TAB PO SCH (08:56)
[2022-07-14] MEDS: SENOKOT S TAB PO SCH (08:56)
[2022-07-14] MEDS: MIRALAX *UNIT DOSE* 17GM PACKET PO SCH (08:56)
[2022-07-14] MEDS: NYSTATIN 100,000 UNITS/GM TOPICAL PWD 15GM TOP SCH (08:57)
[2022-07-14] MEDS ORDERED: MIDO5TA PO (10:26)
[2022-07-14] MEDS ORDERED: SENN-52 PO (10:26)
[2022-07-14] MEDS ORDERED: FLUD0.1T PO (10:26)
[2022-07-14] MEDS ORDERED: MIRA1POW3 PO (10:26)
[2022-07-14] MEDS ORDERED: DIGO0.253 PO (10:26)
== END 2022-07-14 12:50 | DRG 309 ==
LOC: M ED 14:02 → M ED INP 06-27 02:41 → M PCU 06-27 04:27 → M MSPAV 06-28 16:21
PROVIDERS: ADMIT Internal Medicine; ATTEND Internal Medicine
PROC: B246ZZZ Ultrasonography of Right and Left Heart (ICD-10-PCS; principal; 2022-06-27)
DX: I48.91 Unspecified atrial fibrillation (principal); N39.0 Urinary tract infection, site not specified; Z68.41 Body mass index [BMI] 40.0-44.9, adult; K59.00 Constipation, unspecified; E11.9 Type 2 diabetes mellitus without complications; K80.20 Calculus of gallbladder without cholecystitis without obstruction; E03.9 Hypothyroidism, unspecified; E66.01 Morbid (severe) obesity due to excess calories; G47.00 Insomnia, unspecified; L30.4 Erythema intertrigo; B96.20 Unspecified Escherichia coli [E. coli] as the cause of diseases classified elsewhere; E78.00 Pure hypercholesterolemia, unspecified; I95.1 Orthostatic hypotension; I10 Essential (primary) hypertension; R54 Age-related physical debility; Z66 Do not resuscitate; Z79.82 Long term (current) use of aspirin; Z79.4 Long term (current) use of insulin; Z79.890 Hormone replacement therapy; Z79.899 Other long term (current) drug therapy; Z88.0 Allergy status to penicillin

== ENCOUNTER → 2022-07-19 | Outpatient (REF) ==
[~2022-07-19] MED LIST changes: +ASPI-161 PO; +DIGO0.253 PO; +FLUD0.1T PO; +GLUC1TAB58 PO; +MIDO5TA PO; +MIRA1POW3 PO; +NOVO70VL SC; +SENN-52 PO; +SYNT100T PO; +TRAZ-186 PO
[2022-07-19 11:52] LABS: HEMATOCRIT 41.6 % (36.0-47.0); HEMOGLOBIN 13.1 g/dl (12.0-15.5); MEAN CORPUSCULAR HEMOGLOBIN 29.6 pg (27.0-33.0); MEAN CORPUSCULAR HGB CONC 31.5 g/dl (32.0-36.5); MEAN CORPUSCULAR VOLUME 94.1 fl (80.0-96.0); PLATELET COUNT, AUTOMATED 274 10^3/uL (150-450); RED BLOOD COUNT 4.42 10^6/uL (4.00-5.40); WHITE BLOOD COUNT 7.6 10^3/uL (4.0-10.0)
[2022-07-19 12:12] LABS: BLOOD UREA NITROGEN 18 MG/DL (9-23); CALCIUM LEVEL 8.5 MG/DL (8.3-10.6); CARBON DIOXIDE LEVEL 23 MMOL/L (20-31); CHLORIDE LEVEL 110 MMOL/L (98-107); CREATININE FOR GFR 0.78 MG/DL (0.55-1.30); GLOMERULAR FILTRATION RATE > 60.0 (>32); GLUCOSE, FASTING 136 MG/DL (74-106); HEMOGLOBIN A1c 7.2 % (4.0-6.0); POTASSIUM SERUM 4.2 MMOL/L (3.5-5.1); SODIUM LEVEL 142 MMOL/L (136-145); THYROID STIMULATING HORMONE 0.259 uIU/ML (0.55-4.78)
== END ==
PROVIDERS: ATTEND Physician Assistant
DX: E11.9 Type 2 diabetes mellitus without complications (principal)

== ENCOUNTER → 2022-07-20 | Outpatient (REF) | payer MEDICARE, OTHER ==
[~2022-07-20] MED LIST changes: -POTA10CA33 PO; +POTA10CA60 PO
[2022-07-20 17:36] LABS: HEMATOCRIT 41.6 % (36.0-47.0); HEMOGLOBIN 13.2 g/dl (12.0-15.5); MEAN CORPUSCULAR HEMOGLOBIN 30.1 pg (27.0-33.0); MEAN CORPUSCULAR HGB CONC 31.7 g/dl (32.0-36.5); MEAN CORPUSCULAR VOLUME 94.8 fl (80.0-96.0); PLATELET COUNT, AUTOMATED 277 10^3/uL (150-450); RED BLOOD COUNT 4.39 10^6/uL (4.00-5.40); WHITE BLOOD COUNT 9.4 10^3/uL (4.0-10.0)
[2022-07-20 18:07] LABS: BLOOD UREA NITROGEN 18 MG/DL (9-23); CALCIUM LEVEL 9.4 MG/DL (8.3-10.6); CARBON DIOXIDE LEVEL 22 MMOL/L (20-31); CHLORIDE LEVEL 110 MMOL/L (98-107); CREATININE FOR GFR 0.83 MG/DL (0.55-1.30); GLOMERULAR FILTRATION RATE > 60.0 (>32); GLUCOSE, FASTING 38 MG/DL (74-106); POTASSIUM SERUM 4.9 MMOL/L (3.5-5.1); SODIUM LEVEL 141 MMOL/L (136-145)
== END ==
PROVIDERS: ATTEND Physician Assistant
DX: R42 Dizziness and giddiness (principal)

== ENCOUNTER → 2022-07-26 | Outpatient (REF) ==
[2022-07-26 09:35] LABS: HEMATOCRIT 41.7 % (36.0-47.0); HEMOGLOBIN 13.1 g/dl (12.0-15.5); MEAN CORPUSCULAR HGB CONC 31.4 g/dl (32.0-36.5); MEAN CORPUSCULAR VOLUME 95.4 fl (80.0-96.0); PLATELET COUNT, AUTOMATED 250 10^3/uL (150-450); RED BLOOD COUNT 4.37 10^6/uL (4.00-5.40); WHITE BLOOD COUNT 6.8 10^3/uL (4.0-10.0)
[2022-07-26 09:54] LABS: BLOOD UREA NITROGEN 21 MG/DL (9-23); CALCIUM LEVEL 8.2 MG/DL (8.3-10.6); CARBON DIOXIDE LEVEL 24 MMOL/L (20-31); CHLORIDE LEVEL 112 MMOL/L (98-107); CREATININE FOR GFR 0.92 MG/DL (0.55-1.30); GLOMERULAR FILTRATION RATE > 60.0 (>32); GLUCOSE, FASTING 69 MG/DL (74-106); POTASSIUM SERUM 4.4 MMOL/L (3.5-5.1); SODIUM LEVEL 143 MMOL/L (136-145)
== END ==
PROVIDERS: ATTEND Physician Assistant
DX: E11.9 Type 2 diabetes mellitus without complications (principal)

== ENCOUNTER → 2022-07-31 | Outpatient (REF) ==
[2022-07-31 10:21] LABS: BLOOD UREA NITROGEN 21 MG/DL (9-23); CALCIUM LEVEL 8.8 MG/DL (8.3-10.6); CARBON DIOXIDE LEVEL 22 MMOL/L (20-31); CHLORIDE LEVEL 112 MMOL/L (98-107); CREATININE FOR GFR 0.88 MG/DL (0.55-1.30); DIGOXIN LEVEL 1.7 NG/ML (0.8-2.0); GLOMERULAR FILTRATION RATE > 60.0 (>32); GLUCOSE, FASTING 126 MG/DL (74-106); POTASSIUM SERUM 4.5 MMOL/L (3.5-5.1); SODIUM LEVEL 142 MMOL/L (136-145)
[2022-07-31 11:29] LABS: HEMOGLOBIN A1c 6.8 % (4.0-6.0)
== END ==
PROVIDERS: ATTEND Internal Medicine
DX: E11.9 Type 2 diabetes mellitus without complications (principal)

== ENCOUNTER → 2022-08-16 | Outpatient (REF) ==
[~2022-08-16] MED LIST changes: +FARX1TAB3 PO; +LASI20TA3 PO; +LEVO750T14 PO; +METF-839 PO; +NOVOINJ2; +SYNT88TA2 PO
[2022-08-16 08:46] LABS: HEMATOCRIT 39.1 % (36.0-47.0); HEMOGLOBIN 12.1 g/dl (12.0-15.5); MEAN CORPUSCULAR HEMOGLOBIN 29.5 pg (27.0-33.0); MEAN CORPUSCULAR HGB CONC 30.9 g/dl (32.0-36.5); MEAN CORPUSCULAR VOLUME 95.4 fl (80.0-96.0); PLATELET COUNT, AUTOMATED 235 10^3/uL (150-450); WHITE BLOOD COUNT 8.8 10^3/uL (4.0-10.0)
[2022-08-16 09:19] LABS: BLOOD UREA NITROGEN 19 MG/DL (9-23); CALCIUM LEVEL 8.1 MG/DL (8.3-10.6); CARBON DIOXIDE LEVEL 23 MMOL/L (20-31); CHLORIDE LEVEL 109 MMOL/L (98-107); CREATININE FOR GFR 0.82 MG/DL (0.55-1.30); GLOMERULAR FILTRATION RATE > 60.0 (>32); GLUCOSE, FASTING 79 MG/DL (74-106); SODIUM LEVEL 144 MMOL/L (136-145); THYROID STIMULATING HORMONE 2.428 uIU/ML (0.55-4.78)
== END ==
PROVIDERS: ATTEND Physician Assistant
DX: E03.9 Hypothyroidism, unspecified (principal)

== ENCOUNTER 2022-08-19 11:10 | Emergency (ER) | payer MEDICARE ==
[~2022-08-19] VITALS: Ht 157.5 cm; Wt 96.4 kg
[~2022-08-19 11:10] MED LIST changes: -FARX1TAB3 PO; -LASI20TA3 PO; -LEVO750T14 PO; -METF-839 PO; -NOVOINJ2; -SYNT88TA2 PO
[2022-08-19 12:01] LABS: BASO # 0.1 10^3/uL (0.0-0.2); BASO % 0.7 % (0.0-1.0); EOS # 0.3 10^3/uL (0.0-0.5); EOS % 4.7 % (0.0-3.0); HEMATOCRIT 38.5 % (36.0-47.0); HEMOGLOBIN 12.4 g/dl (12.0-15.5); LYMPH # 1.3 10^3/uL (1.5-5.0); LYMPH % 18.4 % (24.0-44.0); MEAN CORPUSCULAR HGB CONC 32.2 g/dl (32.0-36.5); MONO # 0.9 10^3/uL (0.0-0.8); MONO % 12.2 % (2.0-8.0); NEUTROPHILS # 4.5 10^3/uL (1.5-8.5); NEUTROPHILS % 62.9 % (36.0-66.0); PLATELET COUNT, AUTOMATED 330 10^3/uL (150-450); RED BLOOD COUNT 4.14 10^6/uL (4.00-5.40); WHITE BLOOD COUNT 7.2 10^3/uL (4.0-10.0)
[2022-08-19] MEDS ORDERED: FARX1TAB3 PO (12:03)
[2022-08-19] MEDS ORDERED: METF-839 PO (12:03)
[2022-08-19] MEDS ORDERED: SYNT88TA2 PO (12:03)
[2022-08-19] MEDS ORDERED: NOVOINJ2 (12:03)
[2022-08-19 12:29] LABS: CK-MB VALUE MASS < 1.0 NG/ML (<3.6)
[2022-08-19 12:30] LABS: BLOOD UREA NITROGEN 15 MG/DL (9-23); CALCIUM LEVEL 8.1 MG/DL (8.3-10.6); CARBON DIOXIDE LEVEL 24 MMOL/L (20-31); CHLORIDE LEVEL 110 MMOL/L (98-107); CREATININE FOR GFR 0.72 MG/DL (0.55-1.30); GLOMERULAR FILTRATION RATE > 60.0 (>32); GLUCOSE, FASTING 123 MG/DL (74-106); POTASSIUM SERUM 4.5 MMOL/L (3.5-5.1); SODIUM LEVEL 145 MMOL/L (136-145)
[2022-08-19 12:39] LABS: CPK CREATINE PHOSPHOKINASE 35 U/L (34-145); MB/CK RELATIVE INDEX 2.85 (< OR =4)
[2022-08-19] MEDS ORDERED: ISOVUE-370 76% 100ML VIAL As Ordered ONE (13:31)
[2022-08-19 14:31] VITALS: TEMP 98.7
[2022-08-19] MEDS ORDERED: DOXYCYCLINE HYCLATE 100MG TABLET PO ONE (15:25)
[2022-08-19] MEDS ORDERED: cefTRIAXone SOD 1 GM in D5W MINI-BAG PLUS 50 ML IV ONE (15:25)
[2022-08-19 16:25] VITALS: O2SAT 92
[2022-08-19] MEDS ORDERED: LEVO750T14 PO ×2 (16:26→16:30)
[2022-08-19] MEDS ORDERED: LASI20TA3 PO ×2 (16:26→16:30)
[2022-08-19 16:30] VITALS: BP 182/81
== END 2022-08-19 17:28 | disposition home or self-care (01) ==
LOC: EDBD 11:10 → M ED 11:10 → CANBEDREQ 16:19 → M ED 17:28
DX: J18.9 Pneumonia, unspecified organism (principal); J90 Pleural effusion, not elsewhere classified; I48.91 Unspecified atrial fibrillation; E11.9 Type 2 diabetes mellitus without complications; E78.5 Hyperlipidemia, unspecified; Z88.0 Allergy status to penicillin; Z79.899 Other long term (current) drug therapy; Z79.82 Long term (current) use of aspirin; Z79.4 Long term (current) use of insulin
CPT/HCPCS: 71045; 71275; 80048; 82550; 82553; 83605; 84484; 85025; 87040; 87077; 87186; 87486; 87581; 87633; 87798; 93005; 93041; 94760; 96365; 99285; J0696; Q9967

== ENCOUNTER → 2022-08-23 | Outpatient (REF) ==
[~2022-08-23] MED LIST changes: +FARX1TAB3 PO; +LASI20TA3 PO; +LEVO750T14 PO; +METF-839 PO; +NOVOINJ2; +SYNT88TA2 PO
[2022-08-23 10:37] LABS: HEMATOCRIT 39.8 % (36.0-47.0); HEMOGLOBIN 12.4 g/dl (12.0-15.5); MEAN CORPUSCULAR HEMOGLOBIN 29.2 pg (27.0-33.0); MEAN CORPUSCULAR HGB CONC 31.2 g/dl (32.0-36.5); MEAN CORPUSCULAR VOLUME 93.9 fl (80.0-96.0); PLATELET COUNT, AUTOMATED 414 10^3/uL (150-450); RED BLOOD COUNT 4.24 10^6/uL (4.00-5.40); WHITE BLOOD COUNT 8.2 10^3/uL (4.0-10.0)
[2022-08-23 10:54] LABS: BLOOD UREA NITROGEN 15 MG/DL (9-23); CARBON DIOXIDE LEVEL 25 MMOL/L (20-31); CHLORIDE LEVEL 106 MMOL/L (98-107); CREATININE FOR GFR 0.77 MG/DL (0.55-1.30); GLOMERULAR FILTRATION RATE > 60.0 (>32); GLUCOSE, FASTING 137 MG/DL (74-106); POTASSIUM SERUM 3.8 MMOL/L (3.5-5.1); SODIUM LEVEL 142 MMOL/L (136-145)
== END ==
PROVIDERS: ATTEND Physician Assistant
DX: J18.9 Pneumonia, unspecified organism (principal)

== ENCOUNTER → 2022-09-20 | Outpatient (REF) | payer MEDICARE | PROVIDERS: ATTEND Internal Medicine | DX: R91.8 Other nonspecific abnormal finding of lung field (principal); I51.7 Cardiomegaly ==

== ENCOUNTER → 2022-09-27 | Outpatient (REF) | payer MEDICARE ==
[2022-09-27 08:26] LABS: HEMATOCRIT 40.8 % (36.0-47.0); HEMOGLOBIN 12.6 g/dl (12.0-15.5); MEAN CORPUSCULAR HEMOGLOBIN 29.2 pg (27.0-33.0); MEAN CORPUSCULAR HGB CONC 30.9 g/dl (32.0-36.5); MEAN CORPUSCULAR VOLUME 94.4 fl (80.0-96.0); PLATELET COUNT, AUTOMATED 337 10^3/uL (150-450); RED BLOOD COUNT 4.32 10^6/uL (4.00-5.40); WHITE BLOOD COUNT 6.9 10^3/uL (4.0-10.0)
[2022-09-27 08:50] LABS: BLOOD UREA NITROGEN 14 MG/DL (9-23); CALCIUM LEVEL 8.6 MG/DL (8.3-10.6); CARBON DIOXIDE LEVEL 25 MMOL/L (20-31); CHLORIDE LEVEL 107 MMOL/L (98-107); CREATININE FOR GFR 0.76 MG/DL (0.55-1.30); GLOMERULAR FILTRATION RATE > 60.0 (>32); GLUCOSE, FASTING 113 MG/DL (74-106); POTASSIUM SERUM 3.9 MMOL/L (3.5-5.1); SODIUM LEVEL 143 MMOL/L (136-145)
== END ==
PROVIDERS: ATTEND Internal Medicine
DX: E11.9 Type 2 diabetes mellitus without complications (principal)

== ENCOUNTER → 2022-10-02 | Outpatient (REF) | payer MEDICARE | LOC: M PLAIMG 11:48 | PROVIDERS: ATTEND Internal Medicine | DX: I50.9 Heart failure, unspecified (principal); J98.4 Other disorders of lung ==

== ENCOUNTER → 2022-10-25 | Outpatient (REF) | payer MEDICARE ==
[2022-10-25 11:15] LABS: HEMATOCRIT 42.9 % (36.0-47.0); HEMOGLOBIN 13.5 g/dl (12.0-15.5); MEAN CORPUSCULAR HGB CONC 31.5 g/dl (32.0-36.5); MEAN CORPUSCULAR VOLUME 92.3 fl (80.0-96.0); PLATELET COUNT, AUTOMATED 309 10^3/uL (150-450); RED BLOOD COUNT 4.65 10^6/uL (4.00-5.40); WHITE BLOOD COUNT 7.5 10^3/uL (4.0-10.0)
[2022-10-25 11:26] LABS: HEMOGLOBIN A1c 5.1 % (4.0-6.0)
[2022-10-25 11:51] LABS: BLOOD UREA NITROGEN 17 MG/DL (9-23); CALCIUM LEVEL 8.5 MG/DL (8.3-10.6); CARBON DIOXIDE LEVEL 24 MMOL/L (20-31); CHLORIDE LEVEL 106 MMOL/L (98-107); CREATININE FOR GFR 0.72 MG/DL (0.55-1.30); GLOMERULAR FILTRATION RATE > 60.0 (>32); GLUCOSE, FASTING 122 MG/DL (74-106); SODIUM LEVEL 142 MMOL/L (136-145)
== END ==
PROVIDERS: ATTEND Internal Medicine
DX: E11.9 Type 2 diabetes mellitus without complications (principal)

== ENCOUNTER → 2022-11-27 | Outpatient (REF) | payer MEDICARE | PROVIDERS: ATTEND Internal Medicine | DX: E11.9 Type 2 diabetes mellitus without complications (principal); Z53.8 Procedure and treatment not carried out for other reasons ==

== ENCOUNTER → 2022-12-01 | Outpatient (REF) | payer MEDICARE ==
[2022-12-01 09:55] LABS: HEMATOCRIT 41.3 % (36.0-47.0); HEMOGLOBIN 13.1 g/dl (12.0-15.5); MEAN CORPUSCULAR HEMOGLOBIN 28.8 pg (27.0-33.0); MEAN CORPUSCULAR HGB CONC 31.7 g/dl (32.0-36.5); MEAN CORPUSCULAR VOLUME 90.8 fl (80.0-96.0); PLATELET COUNT, AUTOMATED 280 10^3/uL (150-450); RED BLOOD COUNT 4.55 10^6/uL (4.00-5.40); WHITE BLOOD COUNT 8.5 10^3/uL (4.0-10.0)
[2022-12-01 10:18] LABS: BLOOD UREA NITROGEN 17 MG/DL (9-23); CALCIUM LEVEL 8.4 MG/DL (8.3-10.6); CARBON DIOXIDE LEVEL 27 MMOL/L (20-31); CHLORIDE LEVEL 106 MMOL/L (98-107); CREATININE FOR GFR 0.69 MG/DL (0.55-1.30); DIGOXIN LEVEL 1.7 NG/ML (0.8-2.0); GLOMERULAR FILTRATION RATE > 60.0 (>32); GLUCOSE, FASTING 174 MG/DL (74-106); POTASSIUM SERUM 3.3 MMOL/L (3.5-5.1); SODIUM LEVEL 143 MMOL/L (136-145)
[2022-12-01 10:37] LABS: HEMOGLOBIN A1c 5.7 % (4.0-6.0)
== END ==
PROVIDERS: ATTEND Internal Medicine
DX: E11.9 Type 2 diabetes mellitus without complications (principal); E03.9 Hypothyroidism, unspecified

== ENCOUNTER → 2023-01-24 | Outpatient (REF) | payer MEDICARE ==
[2023-01-24 11:16] LABS: HEMOGLOBIN A1c 7.5 % (4.0-6.0)
== END ==
PROVIDERS: ATTEND Internal Medicine
DX: E11.9 Type 2 diabetes mellitus without complications (principal)

== ENCOUNTER → 2023-01-24 | Outpatient (REF) | payer MEDICARE | PROVIDERS: ATTEND Internal Medicine | DX: E11.9 Type 2 diabetes mellitus without complications (principal) ==

== ENCOUNTER → 2023-02-20 | Outpatient (REF) | payer MEDICARE ==
[~2023-02-20] MED LIST changes: +ATIV1TAB10 PO; +BISA5TAB15 PO; +HYOS125TA PO; +LACT20EL PO; +LANTINJ4 SC; +MORP1SOL5 PO; +POTA-298 PO
== END ==
PROVIDERS: ATTEND Internal Medicine
DX: E11.9 Type 2 diabetes mellitus without complications (principal); Z53.8 Procedure and treatment not carried out for other reasons